=== PATIENT | male | born 1960 | race Caucasian/White ===

== ENCOUNTER 2017-06-21 13:45 | Inpatient (IN) | payer MEDICAID ==
[~2017-06-21] VITALS: Ht 180 cm; Wt 105.5 kg
[2017-06-21 14:00] VITALS: BP 119/70; PULSE 76; RESP 18
[2017-06-21] MEDS ORDERED: BISACODYL 10 MG SUPP PR PRN (16:00)
[2017-06-21] MEDS ORDERED: MAGNESIUM HYDROXIDE 30ML CUP PO PRN (16:00)
[2017-06-21] MEDS ORDERED: DC GLYBURIDE, GLIPIZIDE,GLIMEPIRIDE AND PREVIOUS INSULIN ORDERS XX SCH (16:30)
[2017-06-21] MEDS ORDERED: LACTULOSE 30ML CUP PO PRN (16:30)
[2017-06-21] MEDS ORDERED: DEXTROSE 50% 50 ML SYRINGE IV PRN ×2 (16:30)
[2017-06-21] MEDS ORDERED: POLYETHYLENE GLYCOL 17 GM PACKET PO PRN (16:30)
[2017-06-21] MEDS ORDERED: GLUCOSE GEL 15 GRAM TUBE PO PRN ×2 (16:30)
[2017-06-21] MEDS ORDERED: GLUCAGON 1 MG INJ IM PRN (16:30)
[2017-06-21] MEDS ORDERED: GLUCOSE GEL 15 GRAM TUBE BUCCAL PRN (16:30)
[2017-06-21] MEDS: Insulin NOVOLOG SS MILD Algorithm (SS with meals and bedtime) SC SCH ×2 (17:05→21:00)
[2017-06-21 18:03] LABS: ADD UMIC YES; UR ASCORBIC ACID NEGATIVE (NEGATIVE); UR BACTERIA FEW /HPF (NONE SEEN); UR BILIRUBIN (Dip) NEGATIVE (NEGATIVE); UR BLOOD (Dip) NEGATIVE (NEGATIVE); UR CLARITY CLEAR (CLEAR); UR COLOR YELLOW (YELLOW); UR GLUCOSE (Dip) NEGATIVE (NEGATIVE); UR KETONES (Dip) NEGATIVE (NEGATIVE); UR LEUKOCYTE ESTERASE (Dip) TRACE Leu/ul (NEGATIVE); UR NITRITE (Dip) NEGATIVE (NEGATIVE); UR RBC 2 /HPF (0-5); UR SPECIFIC GRAVITY (Dip) 1.009 (1.003-1.030); UR TOTAL PROTEIN (Dip) NEGATIVE (NEGATIVE); UR UROBILINOGEN (Dip) NEGATIVE (NEGATIVE)
[2017-06-21 18:10] LABS: UR MUCUS FEW /HPF (NONE SEEN)
[2017-06-21] MEDS: ACCUCHECK 2 HOURS AFTER FIRST BITE XX SCH (19:47)
[2017-06-21 20:00] VITALS: BP 123/69; RESP 18
[2017-06-21] MEDS: SENNA TAB PO SCH (21:00)
[2017-06-21] MEDS: ATORVASTATIN 40 MG TAB PO SCH (21:29)
[2017-06-21] MEDS: DOCUSATE SODIUM 100 MG CAP PO SCH (21:29)
[2017-06-21] MEDS: INSULIN GLARGINE [LANtus] 3 ML PEN SC SCH (21:32)
[2017-06-22 02:00] VITALS: BP 127/70; RESP 18
[2017-06-22] MEDS: ACCUCHECK 2 AM XX SCH (02:15)
[2017-06-22 06:49] LABS: BASOPHILS % 0.2 % (0.0-2.0); EOSINOPHILS # 0.1 10^3/ul (0.0-0.5); EOSINOPHILS % 1.1 % (0.0-7.0); HEMATOCRIT 46.1 % (42.0-52.0); LYMPHOCYTES # 2.2 10^3/ul (0.8-2.9); LYMPHOCYTES % 24.4 % (15.0-51.0); MEAN CORPUSCULAR HEMOGLOBIN 30.8 pg (29.0-33.0); MEAN CORPUSCULAR HGB CONC 34.7 g/dl (32.0-37.0); MEAN CORPUSCULAR VOLUME 88.8 fl (82.0-101.0); MEAN PLATELET VOLUME 11.5 fl (7.4-10.4); MONOCYTE # 0.8 10^3/ul (0.3-0.9); MONOCYTES % 8.9 % (0.0-11.0); NEUTROPHIL # 5.9 10^3/ul (1.6-7.5); NEUTROPHILS % 64.7 % (39.0-77.0); PLATELET COUNT 224 10^3/UL (140-415); RED BLOOD COUNT 5.19 10^6/ul (4.70-6.10); RED CELL DISTRIBUTION WIDTH 11.2 % (11.5-14.5); WHITE BLOOD COUNT 9.2 10^3/ul (4.8-10.8)
[2017-06-22] MEDS: Insulin NOVOLOG SS MILD Algorithm (SS with meals and bedtime) SC SCH ×4 (07:05→20:52)
[2017-06-22 07:07] LABS: ALBUMIN 4.1 g/dl (3.3-4.9); ALBUMIN/GLOBULIN RATIO 1.28; BILIRUBIN,INDIRECT 0.5 mg/dl (0-1.1); BILIRUBIN,TOTAL 0.5 mg/dl (0.2-1.3); CALCIUM 9.2 mg/dl (8.4-10.2); CREATININE 0.92 mg/dl (0.61-1.24); POTASSIUM 4.2 mmol/L (3.5-5.1); TOTAL PROTEIN 7.3 g/dl (6.1-8.1)
[2017-06-22 07:30] VITALS: BP 135/85; RESP 18
[2017-06-22] MEDS: DOCUSATE SODIUM 100 MG CAP PO SCH ×2 (08:48→20:51)
[2017-06-22] MEDS: ASPIRIN 81 MG TAB PO SCH (08:48)
[2017-06-22] MEDS: LISINOPRIL 10 MG TAB PO SCH (08:48)
[2017-06-22] MEDS: ENOXAPARIN 40 MG/0.4 ML SYG SC SCH (08:50)
[2017-06-22] MEDS: ACCUCHECK 2 HOURS AFTER FIRST BITE XX SCH ×3 (10:10→19:35)
--- NOTE | 2017-06-22 15:00 | CONS ---
DATE OF ADMISSION: 06/21/2017 DATE OF CONSULTATION: 06/22/2017 TYPE OF CONSULTATION: Rehabilitation post-admission physician evaluation. 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 ACTIVE COMORBIDITIES: 1. Right vertebral stenosis. 2. Hypertension. 3. Diabetes mellitus. 4. Hyperlipidemia. 5. Chronic low back pain. 6. Impairments in self-care, mobility and cognition. HISTORY OF PRESENT ILLNESS: The patient is a pleasant 56-year-old gentleman with a history of hyper tension and diabetes mellitus who was admitted with dizziness, headache and right-sided weakness. A head CT was performed and demonstrated hemorrhagic infarct. An MRI of the brain did demonstrate le ft pontine infarct extending into the left side of the jose alfredo. Patient was noted to have right verteb ral high-grade stenosis. The patient noted to have significant impairments in self-care and mobilit y as compared to baseline and has been cleared to transfer to the rehabilitation unit for comprehens billy interdisciplinary rehab care. FUNCTIONAL HISTORY: Prior to recent events, he was independent in self-care tasks and mobility. Cu rrently, he requires maximal assist for self-care and mobility tasks. I have reviewed the preadmission screen and the patient's current functional status is consistent wi th the preadmission screen. SOCIAL HISTORY: The patient lives at home with family and hopes to return there upon discharge. PAST MEDICAL HISTORY: 1. Diabetes mellitus. 2. Hypertension. 3. Chronic low back pain. CURRENT MEDICATIONS: 1. Lovenox 40 mg subcutaneous daily. 2. Aspirin 81 mg p.o. daily. 3. Antivert p.r.n. 4. Lipitor 40 mg p.o. at bedtime. 5. Zestril 10 mg p.o. daily. 6. Senokot 1 tab p.o. at bedtime. 7. MiraLax p.r.n. ALLERGIES: THE PATIENT WITH NO KNOWN DRUG ALLERGIES. PHYSICAL EXAMINATION: VITAL SIGNS: He is currently afebrile with stable vital signs. HEENT: Extraocular motions appear intact. Oropharynx clear. NECK: Supple. LUNGS: Clear anteriorly. CARDIAC: S1, S2. ABDOMEN: Soft, nontender, positive bowel sounds. NEUROLOGIC: He is awake and alert. He is oriented to person and hospital and date. He will follow simple 1-step commands. He demonstrates good strength in the left upper and lower extremity. He h as 2- strength in the right upper extremity and 3 to 3- strength in the right lower extremity. PLAN: The patient has been admitted for comprehensive interdisciplinary acute rehab and is anticipa adis to tolerate 3 hours of daily therapy in divided doses for at least 5 out of 7 days a week. The treatment plan will include: 1. Physical therapy to focus on bed mobility, transfers, and household ambulation with the goal of having the patient reach a standby assist level. 2. Occupational therapy to focus on hygiene, grooming, dressing, bathing, and toileting activities with the goal of having the patient reach a standby assist level. 3. Rehabilitation nursing for carryover of therapeutic interventions, the goal of continent of delilah l and bladder, and the goal of pain adequately managed on oral medications. 4. Speech therapy for full cognitive assessment and retraining with the goal of having the patient return to baseline cognition. REHABILITATION BARRIER: Weakness. INTERVENTION FOR BARRIER: Comprehensive interdisciplinary approach. ESTIMATED LENGTH OF STAY: 14 days. DISPOSITION GOAL: Home. I acknowledge that I performed a full physical examination on this patient within 24 hours of admiss ion to the rehabilitation unit. I believe the patient is a good candidate for comprehensive interdi sciplinary rehab care and is anticipated to make reasonable goals in a reasonable period of time as outlined above. Dictated By: TALIB FLOYD/VÍCTOR Conf#: [id number] DID#: [id number]
[2017-06-22] MEDS ORDERED: INFLUENZA VIRUS VACCINE 0.5 ML SYG IM* ONE (16:00)
--- NOTE | 2017-06-22 17:47 | HP ---
DATE OF ADMISSION: 06/21/2017 HISTORY OF PRESENT ILLNESS: The patient is a 56-year-old gentleman with past medical history of mona betes, hypertension, hyperlipidemia, chronic low back pain and chronic right shoulder pain. He pres ented with dizziness, right-sided weakness and headache to [facility]. He was found to hav e severe hypertension, facial droop, right-sided weakness. 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 In the ER, the right-sided weakness resolved, but mild vertigo still persisted. The patient was admitted with TIA, vertigo, hypertensive urgency, diabetes, cranial nerve III palsy. The patient was eventua lly transferred to acute rehab for further therapy. There has been no recent fever, chills, nausea, vomiting, chest pain, shortness of breath. MRI was done and suggested CVA. PAST MEDICAL HISTORY: As above. MEDICATIONS: Currently include: 1. Lovenox. 2. Aspirin. 3. Lisinopril. 4. Colace. 5. Senna. 6. Lipitor. 7. Lantus. 8. Lactulose. 9. Meclizine. 10. Polyethylene glycol. ALLERGIES: NO KNOWN ALLERGIES. SOCIAL HISTORY: He does not smoke, drink or use drugs. FAMILY HISTORY: History of kidney disease. REVIEW OF SYSTEMS: A 14-point review of systems attempted and negative unless stated on exam. PHYSICAL EXAMINATION: VITAL SIGNS: Temperature 98.7, blood pressure 127/70. HEENT: Normocephalic, atraumatic. Pupils are equal, round and reactive to light. Oropharynx is mo ist. NECK: Supple. HEART: Regular rate and rhythm. LUNGS: Clear. ABDOMEN: Soft, nontender, nondistended. Bowel sounds present. EXTREMITIES: No clubbing, cyanosis or edema. LABORATORY EVALUATION: Shows MRI which showed progression of the infarct to the jose alfredo. The initial MRI was likely done at the inception of the CVA and the followup MRI showed completion of the CVA. UA shows 8 WBCs. White count 9.2, hemoglobin 16, hematocrit 46. IMPRESSION: 1. Cerebrovascular accident of the jose alfredo with residual dysarthria and some dizziness. 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 The right vertebral artery stenosis may explain the patient's vertigo, but it does not explain the cause of the left pontine cerebrovascular accident. Continue PT, OT, ST, a spirin and Lipitor to be continued. Also noted intranuclear ophthalmoplegia left eye. Consider james rology evaluation. The patient was recommended an eye patch to diplopia. 2. Vertigo, acute, could be secondary to stroke. Incidental finding with stenosis of right vertebr al artery. Also complication of diplopia. Continue therapies. 3. Hypertensive urgency, resolved. Possibly related to elevation of blood pressure from cerebrovas cular accident. Currently, blood pressure is adequately controlled on regular medications. 4. Diabetes. Continue regular medications on sliding scale. 5. Cranial nerve III palsy, acute. Continue eye patch. 6. Vertebral artery stenosis, occlusion, monitor. 7. Chronic low back pain, stable with Tylenol for pain, p.r.n. pain control. 8. Hyperlipidemia. Continue regular medications, monitor. Dictated By: MARKY BINGHAM/VÍCTOR Conf#: [id number] DID#: [id number]
[2017-06-22 19:58] VITALS: BP 121/75; RESP 18
[2017-06-22] MEDS: SENNA TAB PO SCH (20:51)
[2017-06-22] MEDS: ATORVASTATIN 40 MG TAB PO SCH (20:51)
[2017-06-22] MEDS: INSULIN GLARGINE [LANtus] 3 ML PEN SC SCH (20:56)
[2017-06-23 02:00] VITALS: BP 135/77; PULSE 80; RESP 16
[2017-06-23] MEDS: ACCUCHECK 2 AM XX SCH (02:00)
[2017-06-23] MEDS: Insulin NOVOLOG SS MILD Algorithm (SS with meals and bedtime) SC SCH ×5 (07:05→22:09)
[2017-06-23 07:30] VITALS: BP 112/68; RESP 20
[2017-06-23] MEDS: DOCUSATE SODIUM 100 MG CAP PO SCH ×3 (08:39→22:06)
[2017-06-23] MEDS: ENOXAPARIN 40 MG/0.4 ML SYG SC SCH (08:39)
[2017-06-23] MEDS: ASPIRIN 81 MG TAB PO SCH (08:39)
[2017-06-23] MEDS: LISINOPRIL 10 MG TAB PO SCH (08:39)
--- NOTE | 2017-06-23 08:51 | CONS ---
Date/Time of Note Date/Time of Note DATE: 06/23/17 TIME: 08:50 Consult Date/Type/Reason Admit Date/Time Jun 21, 2017 at 13:45 Initial Consult Date Subjective Patient comfortable Objective pulm-cta mod assist Vital Signs Date Time Temp Pulse Resp B/P Pulse Ox O2 Delivery O2 Flow Rate FiO2 06/23/17 07:30 98.6 71 20 112/68 96 06/23/17 02:00 Room Air Intake and Output 06/22/17 06/22/17 06/23/17 15:00 23:00 07:00 Intake Total 300 ml Output Total 550 ml Balance -250 ml Results/Medications Result Diagram: 06/22/1761006/22/17 0611 Results 24 hrs Laboratory Tests Test 06/22/17 10:07 06/22/17 12:26 06/22/17 14:14 06/22/17 17:35 Bedside Glucose 119 134 155 132 Test 06/22/17 19:55 06/22/17 20:51 06/23/17 07:54 Bedside Glucose 142 152 115 Medications Current Medications Docusate Sodium (Colace) 100 mg BID PO Last administered on 06/23/17 08:39; Admin Dose 100 MG; Start 06/21/17 at 21:00 Senna (Senokot) 1 tab HS PO Last administered on 06/22/17 20:51; Admin Dose 1 TAB; Start 06/21/17 at 21:00 Acetaminophen (Tylenol Tab) 650 mg Q4H PRN PO PAIN; Start 06/21/17 at 16:00 Bisacodyl (Dulcolax Supp) 10 mg DAILY PRN [place] CONSTIPATION; Start 06/21/17 at 16:00 Magnesium Hydroxide (Milk Of Mag) 30 ml BID PRN PO CONSTIPATION; Start at 16:00 Lactulose (Enulose) 20 gm DAILY PRN PO CONSTIPATION; Start 06/21/17 at 16:30 Enoxaparin Sodium (Lovenox) 40 mg DAILY SC Last administered on 06/23/17 08: 39; Admin Dose 40 MG; Start 06/22/17 at 09:00 Aspirin (Aspirin) 81 mg DAILY PO Last administered on 06/23/17 08:39; Admin Dose 81 MG; Start 06/22/17 at 09:00 Meclizine HCl (Antivert) 25 mg TID PRN PO VERTIGO; Start 06/21/17 at 16:30 Atorvastatin Calcium (Lipitor) 40 mg DAILY@21 PO Last administered on 20:51; Admin Dose 40 MG; Start 06/21/17 at 21:00 Lisinopril (Zestril) 10 mg DAILY PO Last administered on 06/23/17 08:39; Admin Dose 10 MG; Start 06/22/17 at 09:00 Polyethylene Glycol (Miralax) 17 gm DAILY PRN PO CONSTIPATION; Start 06/21/17 at 16:30 Insulin Glargine (Lantus) 12 unit HS SC Last administered on 06/22/17 20:56; Admin Dose 12 UNIT; Start 06/21/17 at 21:00 Miscellaneous Information 1 ea NOTE XX ; Start 06/21/17 at 16:30 Diagnostic Test (Pha) (Accu-Chek) 1 ea 02 XX ; Start 06/21/17 at 16:30 Miscellaneous Information 1 ea NOTE XX ; Start 06/21/17 at 16:30 Glucose (Glutose) 15 gm Q15M PRN PO DECREASED GLUCOSE; Start 06/21/17 at 16:30 Glucose (Glutose) 22.5 gm Q15M PRN PO DECREASED GLUCOSE; Start 06/21/17 at 16: 30 Dextrose (D50w Syringe) 25 ml Q15M PRN IV DECREASED GLUCOSE; Start 06/21/17 at 16:30 Dextrose (D50w Syringe) 50 ml Q15M PRN IV DECREASED GLUCOSE; Start 06/21/17 at 16:30 Glucagon (Glucagen) 1 mg Q15M PRN IM DECREASED GLUCOSE; Start 06/21/17 at 16: 30 Glucose (Glutose) 15 gm Q15M PRN BUCCAL DECREASED GLUCOSE; Start 06/21/17 at 16:30 Assessment/Plan Additional Assessment/Plan Rehab- 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 Continue rehab Right vertebral stenosis. Hypertension. Diabetes mellitus. Hyperlipidemia. Chronic low back pain. TALIB SCOTT MD Jun 23, 2017 08:51
[2017-06-23] MEDS: ACCUCHECK 2 HOURS AFTER FIRST BITE XX SCH ×3 (09:59→19:35)
--- NOTE | 2017-06-23 11:30 | CONS ---
Date/Time of Note Date/Time of Note DATE: 06/23/17 TIME: 11:29 Consult Date/Type/Reason Admit Date/Time Jun 21, 2017 at 13:45 Initial Consult Date Subjective all noted and reviewed no new c/o. PHYSICAL EXAMINATION: VITAL SIGNS: Temperature 98.7, blood pressure 127/70. HEENT: Normocephalic, atraumatic. Pupils are equal, round and reactive to light. Oropharynx is moist. NECK: Supple. HEART: Regular rate and rhythm. LUNGS: Clear. ABDOMEN: Soft, nontender, nondistended. Bowel sounds present. EXTREMITIES: No clubbing, cyanosis or edema. Objective Vital Signs Date Time Temp Pulse Resp B/P Pulse Ox O2 Delivery O2 Flow Rate FiO2 06/23/17 07:30 98.6 71 20 112/68 96 06/23/17 02:00 Room Air Intake and Output 06/22/17 06/22/17 06/23/17 15:00 23:00 07:00 Intake Total 300 ml Output Total 550 ml Balance -250 ml Results/Medications Result Diagram: 06/22/1761006/22/17 0611 Results 24 hrs Laboratory Tests Test 06/22/17 12:26 06/22/17 14:14 06/22/17 17:35 06/22/17 19:55 Bedside Glucose 134 155 132 142 Test 06/22/17 20:51 06/23/17 07:54 06/23/17 09:56 Bedside Glucose 152 115 252 H Medications Current Medications Docusate Sodium (Colace) 100 mg BID PO Last administered on 06/23/17 08:39; Admin Dose 100 MG; Start 06/21/17 at 21:00 Senna (Senokot) 1 tab HS PO Last administered on 06/22/17 20:51; Admin Dose 1 TAB; Start 06/21/17 at 21:00 Acetaminophen (Tylenol Tab) 650 mg Q4H PRN PO PAIN; Start 06/21/17 at 16:00 Bisacodyl (Dulcolax Supp) 10 mg DAILY PRN [place] CONSTIPATION; Start 06/21/17 at 16:00 Magnesium Hydroxide (Milk Of Mag) 30 ml BID PRN PO CONSTIPATION; Start at 16:00 Lactulose (Enulose) 20 gm DAILY PRN PO CONSTIPATION; Start 06/21/17 at 16:30 Enoxaparin Sodium (Lovenox) 40 mg DAILY SC Last administered on 06/23/17 08: 39; Admin Dose 40 MG; Start 06/22/17 at 09:00 Aspirin (Aspirin) 81 mg DAILY PO Last administered on 06/23/17 08:39; Admin Dose 81 MG; Start 06/22/17 at 09:00 Meclizine HCl (Antivert) 25 mg TID PRN PO VERTIGO; Start 06/21/17 at 16:30 Atorvastatin Calcium (Lipitor) 40 mg DAILY@21 PO Last administered on 20:51; Admin Dose 40 MG; Start 06/21/17 at 21:00 Lisinopril (Zestril) 10 mg DAILY PO Last administered on 06/23/17 08:39; Admin Dose 10 MG; Start 06/22/17 at 09:00 Polyethylene Glycol (Miralax) 17 gm DAILY PRN PO CONSTIPATION; Start 06/21/17 at 16:30 Insulin Glargine (Lantus) 12 unit HS SC Last administered on 06/22/17 20:56; Admin Dose 12 UNIT; Start 06/21/17 at 21:00 Miscellaneous Information 1 ea NOTE XX ; Start 06/21/17 at 16:30 Diagnostic Test (Pha) (Accu-Chek) 1 ea 02 XX ; Start 06/21/17 at 16:30 Miscellaneous Information 1 ea NOTE XX ; Start 06/21/17 at 16:30 Glucose (Glutose) 15 gm Q15M PRN PO DECREASED GLUCOSE; Start 06/21/17 at 16:30 Glucose (Glutose) 22.5 gm Q15M PRN PO DECREASED GLUCOSE; Start 06/21/17 at 16: 30 Dextrose (D50w Syringe) 25 ml Q15M PRN IV DECREASED GLUCOSE; Start 06/21/17 at 16:30 Dextrose (D50w Syringe) 50 ml Q15M PRN IV DECREASED GLUCOSE; Start 06/21/17 at 16:30 Glucagon (Glucagen) 1 mg Q15M PRN IM DECREASED GLUCOSE; Start 06/21/17 at 16: 30 Glucose (Glutose) 15 gm Q15M PRN BUCCAL DECREASED GLUCOSE; Start 06/21/17 at 16:30 Assessment/Plan Chief Complaint/Hosp Course 1. Cerebrovascular accident of the jose alfredo with residual dysarthria and some dizziness. 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 The right vertebral artery stenosis may explain the patient's vertigo, but it does not explain the cause of the left pontine cerebrovascular accident. Continue PT , OT, ST, aspirin and Lipitor to be continued. Also noted intranuclear ophthalmoplegia left eye. Consider neurology evaluation. The patient was recommended an eye patch to correct diplopia. 2. Vertigo, acute, could be secondary to stroke. Incidental finding with stenosis of right vertebral artery. Also complication of diplopia. Continue therapies. 3. Hypertensive urgency, resolved. Possibly related to elevation of blood pressure from cerebrovascular accident. Currently, blood pressure is adequately controlled on regular medications. 4. Diabetes. Continue regular medications on sliding scale. 5. Cranial nerve III palsy, acute. Continue eye patch. 6. Vertebral artery stenosis, occlusion, monitor. 7. Chronic low back pain, stable with Tylenol for pain, p.r.n. pain control. 8. Hyperlipidemia. Continue regular medications, monitor. Problems: TELMA SANDERS MD Jun 23, 2017 11:30
[2017-06-23 19:53] VITALS: BP 109/62; PULSE 83; RESP 18
[2017-06-23] MEDS: INSULIN GLARGINE [LANtus] 3 ML PEN SC SCH ×2 (21:00→22:08)
[2017-06-23] MEDS: ATORVASTATIN 40 MG TAB PO SCH ×2 (21:00→22:06)
[2017-06-23] MEDS: SENNA TAB PO SCH ×2 (21:00→22:06)
[2017-06-24] MEDS: ACCUCHECK 2 AM XX SCH (02:00)
[2017-06-24 02:22] VITALS: BP 107/67; PULSE 90; RESP 17
[2017-06-24] MEDS: ACETAMINOPHEN 325 MG TAB PO PRN ×2 (06:42→23:02)
[2017-06-24] MEDS: Insulin NOVOLOG SS MILD Algorithm (SS with meals and bedtime) SC SCH ×4 (07:05→20:41)
[2017-06-24 08:08] VITALS: BP 131/72; PULSE 66; RESP 18
[2017-06-24] MEDS: DOCUSATE SODIUM 100 MG CAP PO SCH ×2 (08:17→20:37)
[2017-06-24] MEDS: ASPIRIN 81 MG TAB PO SCH (08:17)
[2017-06-24] MEDS: LISINOPRIL 10 MG TAB PO SCH (08:17)
[2017-06-24] MEDS: ENOXAPARIN 40 MG/0.4 ML SYG SC SCH (08:24)
--- NOTE | 2017-06-24 09:12 | CONS ---
Date/Time of Note Date/Time of Note DATE: 06/24/17 TIME: 09:12 Consult Date/Type/Reason Admit Date/Time Jun 21, 2017 at 13:45 Type of Consultation: nephro/im Subjective all noted and reviewed no new c/o. PHYSICAL EXAMINATION: VITAL SIGNS: Temperature 98.7, blood pressure 127/70. HEENT: Normocephalic, atraumatic. Pupils are equal, round and reactive to light. Oropharynx is moist. NECK: Supple. HEART: Regular rate and rhythm. LUNGS: Clear. ABDOMEN: Soft, nontender, nondistended. Bowel sounds present. EXTREMITIES: No clubbing, cyanosis or edema. Objective Vital Signs Date Time Temp Pulse Resp B/P Pulse Ox O2 Delivery O2 Flow Rate FiO2 06/24/17 08:08 98.4 66 18 131/72 95 06/24/17 02:22 Room Air Intake and Output 06/23/17 06/23/17 06/24/17 14:59 22:59 06:59 Intake Total 600 ml Output Total 900 ml Balance -300 ml Results/Medications Result Diagram: 06/22/1761006/22/17 0611 Results 24 hrs Laboratory Tests Test 06/23/17 09:56 06/23/17 12:21 06/23/17 14:07 06/23/17 17:27 Bedside Glucose 252 H 144 142 118 Test 06/23/17 19:57 06/23/17 22:05 06/24/17 02:17 06/24/17 07:53 Bedside Glucose 227 H 187 139 121 Medications Current Medications Docusate Sodium (Colace) 100 mg BID PO Last administered on 06/24/17 08:17; Admin Dose 100 MG; Start 06/21/17 at 21:00 Senna (Senokot) 1 tab HS PO Last administered on 06/23/17 22:06; Admin Dose 1 TAB; Start 06/21/17 at 21:00 Acetaminophen (Tylenol Tab) 650 mg Q4H PRN PO PAIN Last administered on 06:42; Admin Dose 650 MG; Start 06/21/17 at 16:00 Bisacodyl (Dulcolax Supp) 10 mg DAILY PRN [place] CONSTIPATION; Start 06/21/17 at 16:00 Magnesium Hydroxide (Milk Of Mag) 30 ml BID PRN PO CONSTIPATION; Start at 16:00 Lactulose (Enulose) 20 gm DAILY PRN PO CONSTIPATION; Start 06/21/17 at 16:30 Enoxaparin Sodium (Lovenox) 40 mg DAILY SC Last administered on 06/24/17 08: 24; Admin Dose 40 MG; Start 06/22/17 at 09:00 Aspirin (Aspirin) 81 mg DAILY PO Last administered on 06/24/17 08:17; Admin Dose 81 MG; Start 06/22/17 at 09:00 Meclizine HCl (Antivert) 25 mg TID PRN PO VERTIGO; Start 06/21/17 at 16:30 Atorvastatin Calcium (Lipitor) 40 mg DAILY@21 PO Last administered on 22:06; Admin Dose 40 MG; Start 06/21/17 at 21:00 Lisinopril (Zestril) 10 mg DAILY PO Last administered on 06/24/17 08:17; Admin Dose 10 MG; Start 06/22/17 at 09:00 Polyethylene Glycol (Miralax) 17 gm DAILY PRN PO CONSTIPATION; Start 06/21/17 at 16:30 Insulin Glargine (Lantus) 12 unit HS SC Last administered on 06/23/17 22:08; Admin Dose 12 UNIT; Start 06/21/17 at 21:00 Miscellaneous Information 1 ea NOTE XX ; Start 06/21/17 at 16:30 Diagnostic Test (Pha) (Accu-Chek) 1 ea 02 XX ; Start 06/21/17 at 16:30 Miscellaneous Information 1 ea NOTE XX ; Start 06/21/17 at 16:30 Glucose (Glutose) 15 gm Q15M PRN PO DECREASED GLUCOSE; Start 06/21/17 at 16:30 Glucose (Glutose) 22.5 gm Q15M PRN PO DECREASED GLUCOSE; Start 06/21/17 at 16: 30 Dextrose (D50w Syringe) 25 ml Q15M PRN IV DECREASED GLUCOSE; Start 06/21/17 at 16:30 Dextrose (D50w Syringe) 50 ml Q15M PRN IV DECREASED GLUCOSE; Start 06/21/17 at 16:30 Glucagon (Glucagen) 1 mg Q15M PRN IM DECREASED GLUCOSE; Start 06/21/17 at 16: 30 Glucose (Glutose) 15 gm Q15M PRN BUCCAL DECREASED GLUCOSE; Start 06/21/17 at 16:30 Assessment/Plan Chief Complaint/Hosp Course 1. Cerebrovascular accident of the jose alfredo with residual dysarthria and some dizziness. 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 The right vertebral artery stenosis may explain the patient's vertigo, but it does not explain the cause of the left pontine cerebrovascular accident. Continue PT , OT, ST, aspirin and Lipitor to be continued. Also noted intranuclear ophthalmoplegia left eye. Consider neurology evaluation. The patient was recommended an eye patch to correct diplopia. 2. Vertigo, acute, could be secondary to stroke. Incidental finding with stenosis of right vertebral artery. Also complication of diplopia. Continue therapies. 3. Hypertensive urgency, resolved. Possibly related to elevation of blood pressure from cerebrovascular accident. Currently, blood pressure is adequately controlled on regular medications. 4. Diabetes. Continue regular medications on sliding scale. 5. Cranial nerve III palsy, acute. Continue eye patch. 6. Vertebral artery stenosis, occlusion, monitor. 7. Chronic low back pain, stable with Tylenol for pain, p.r.n. pain control. 8. Hyperlipidemia. Continue regular medications, monitor. Problems: TELMA SANDERS MD Jun 24, 2017 09:12
[2017-06-24] MEDS: ACCUCHECK 2 HOURS AFTER FIRST BITE XX SCH ×3 (10:00→19:56)
[2017-06-24 14:00] VITALS: BP 129/67; PULSE 85; RESP 18
[2017-06-24 20:05] VITALS: BP 109/68; PULSE 105; RESP 18
[2017-06-24] MEDS: ATORVASTATIN 40 MG TAB PO SCH (20:38)
[2017-06-24] MEDS: SENNA TAB PO SCH (20:38)
[2017-06-24] MEDS: INSULIN GLARGINE [LANtus] 3 ML PEN SC SCH (20:42)
[2017-06-25 02:00] VITALS: BP 122/71; PULSE 95; RESP 18
[2017-06-25] MEDS: ACCUCHECK 2 AM XX SCH (02:23)
[2017-06-25] MEDS: ACETAMINOPHEN 325 MG TAB PO PRN ×2 (05:28→19:23)
[2017-06-25 07:00] VITALS: BP 112/56; RESP 18
[2017-06-25] MEDS: LISINOPRIL 10 MG TAB PO SCH (08:19)
[2017-06-25] MEDS: DOCUSATE SODIUM 100 MG CAP PO SCH ×2 (08:19→20:36)
[2017-06-25] MEDS: ASPIRIN 81 MG TAB PO SCH (08:19)
[2017-06-25] MEDS: Insulin NOVOLOG SS MILD Algorithm (SS with meals and bedtime) SC SCH ×4 (08:19→21:00)
[2017-06-25] MEDS: ENOXAPARIN 40 MG/0.4 ML SYG SC SCH (08:20)
--- NOTE | 2017-06-25 09:50 | CONS ---
Date/Time of Note Date/Time of Note DATE: 06/25/17 TIME: 09:50 Consult Date/Type/Reason Admit Date/Time Jun 21, 2017 at 13:45 Type of Consultation: nephro/im Subjective all noted and reviewed no new c/o. BS slightly high PHYSICAL EXAMINATION: VITAL SIGNS: Temperature 98.7, blood pressure 127/70. HEENT: Normocephalic, atraumatic. Pupils are equal, round and reactive to light. Oropharynx is moist. NECK: Supple. HEART: Regular rate and rhythm. LUNGS: Clear. ABDOMEN: Soft, nontender, nondistended. Bowel sounds present. EXTREMITIES: No clubbing, cyanosis or edema. Objective Vital Signs Date Time Temp Pulse Resp B/P Pulse Ox O2 Delivery O2 Flow Rate FiO2 06/25/17 07:00 98.4 87 18 112/56 95 06/25/17 02:00 Room Air Intake and Output 06/24/17 06/24/17 06/25/17 15:00 23:00 07:00 Intake Total 500 ml 240 ml 300 ml Output Total 300 ml 700 ml Balance 200 ml 240 ml -400 ml Results/Medications Result Diagram: 06/22/17 0611 06/22/17 0611 Results 24 hrs Laboratory Tests Test 06/24/17 10:05 06/24/17 12:26 06/24/17 14:20 06/24/17 15:23 Bedside Glucose 215 148 220 179 Test 06/24/17 17:23 06/24/17 19:22 06/24/17 20:35 06/25/17 02:03 Bedside Glucose 156 193 241 H 161 Test 06/25/17 08:05 Bedside Glucose 184 Medications Current Medications Docusate Sodium (Colace) 100 mg BID PO Last administered on 06/25/17 08:19; Admin Dose 100 MG; Start 06/21/17 at 21:00 Senna (Senokot) 1 tab HS PO Last administered on 06/24/17 20:38; Admin Dose 1 TAB; Start 06/21/17 at 21:00 Acetaminophen (Tylenol Tab) 650 mg Q4H PRN PO PAIN Last administered on 05:28; Admin Dose 650 MG; Start 06/21/17 at 16:00 Bisacodyl (Dulcolax Supp) 10 mg DAILY PRN [place] CONSTIPATION; Start 06/21/17 at 16:00 Magnesium Hydroxide (Milk Of Mag) 30 ml BID PRN PO CONSTIPATION; Start at 16:00 Lactulose (Enulose) 20 gm DAILY PRN PO CONSTIPATION; Start 06/21/17 at 16:30 Enoxaparin Sodium (Lovenox) 40 mg DAILY SC Last administered on 06/25/17 08: 20; Admin Dose 40 MG; Start 06/22/17 at 09:00 Aspirin (Aspirin) 81 mg DAILY PO Last administered on 06/25/17 08:19; Admin Dose 81 MG; Start 06/22/17 at 09:00 Meclizine HCl (Antivert) 25 mg TID PRN PO VERTIGO; Start 06/21/17 at 16:30 Atorvastatin Calcium (Lipitor) 40 mg DAILY@21 PO Last administered on 20:38; Admin Dose 40 MG; Start 06/21/17 at 21:00 Lisinopril (Zestril) 10 mg DAILY PO Last administered on 06/25/17 08:19; Admin Dose 10 MG; Start 06/22/17 at 09:00 Polyethylene Glycol (Miralax) 17 gm DAILY PRN PO CONSTIPATION; Start 06/21/17 at 16:30 Insulin Glargine (Lantus) 12 unit HS SC Last administered on 06/24/17 20:42; Admin Dose 12 UNIT; Start 06/21/17 at 21:00 Miscellaneous Information 1 ea NOTE XX ; Start 06/21/17 at 16:30 Diagnostic Test (Pha) (Accu-Chek) 1 ea 02 XX Last administered on 06/25/17 02 :23; Admin Dose 1 EA; Start 06/21/17 at 16:30 Miscellaneous Information 1 ea NOTE XX ; Start 06/21/17 at 16:30 Glucose (Glutose) 15 gm Q15M PRN PO DECREASED GLUCOSE; Start 06/21/17 at 16:30 Glucose (Glutose) 22.5 gm Q15M PRN PO DECREASED GLUCOSE; Start 06/21/17 at 16: 30 Dextrose (D50w Syringe) 25 ml Q15M PRN IV DECREASED GLUCOSE; Start 06/21/17 at 16:30 Dextrose (D50w Syringe) 50 ml Q15M PRN IV DECREASED GLUCOSE; Start 06/21/17 at 16:30 Glucagon (Glucagen) 1 mg Q15M PRN IM DECREASED GLUCOSE; Start 06/21/17 at 16: 30 Glucose (Glutose) 15 gm Q15M PRN BUCCAL DECREASED GLUCOSE; Start 06/21/17 at 16:30 Assessment/Plan Chief Complaint/Hosp Course 1. Cerebrovascular accident of the jose alfredo with residual dysarthria and some dizziness. 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 The right vertebral artery stenosis may explain the patient's vertigo, but it does not explain the cause of the left pontine cerebrovascular accident. Continue PT , OT, ST, aspirin and Lipitor to be continued. Also noted intranuclear ophthalmoplegia left eye. Consider neurology evaluation. The patient was recommended an eye patch to correct diplopia. 2. Vertigo, acute, could be secondary to stroke. Incidental finding with stenosis of right vertebral artery. Also complication of diplopia. Continue therapies. 3. Hypertensive urgency, resolved. Possibly related to elevation of blood pressure from cerebrovascular accident. Currently, blood pressure is adequately controlled on regular medications. 4. Diabetes. Continue regular medications on sliding scale. 5. Cranial nerve III palsy, acute. Continue eye patch. 6. Vertebral artery stenosis, occlusion, monitor. 7. Chronic low back pain, stable with Tylenol for pain, p.r.n. pain control. 8. Hyperlipidemia. Continue regular medications, monitor. Problems: TELMA SANDERS MD Jun 25, 2017 09:50
[2017-06-25 19:54] VITALS: BP 136/74; RESP 18
[2017-06-25] MEDS: SENNA TAB PO SCH (20:36)
[2017-06-25] MEDS: ATORVASTATIN 40 MG TAB PO SCH (20:36)
[2017-06-25] MEDS: INSULIN GLARGINE [LANtus] 3 ML PEN SC SCH (20:38)
[2017-06-26] MEDS: ACETAMINOPHEN 325 MG TAB PO PRN (01:35)
[2017-06-26 02:00] VITALS: BP 114/66; RESP 18
[2017-06-26] MEDS: ACCUCHECK 2 AM XX SCH (02:00)
[2017-06-26] MEDS: Insulin NOVOLOG SS MILD Algorithm (SS with meals and bedtime) SC SCH ×4 (07:05→21:00)
[2017-06-26 08:15] VITALS: BP 109/77; PULSE 70; RESP 18
[2017-06-26] MEDS: DOCUSATE SODIUM 100 MG CAP PO SCH ×2 (08:54→20:29)
[2017-06-26] MEDS: MECLIZINE 25 MG TAB PO PRN (08:54)
[2017-06-26] MEDS: LISINOPRIL 10 MG TAB PO SCH (08:58)
[2017-06-26] MEDS: ASPIRIN 81 MG TAB PO SCH (09:06)
[2017-06-26] MEDS: ENOXAPARIN 40 MG/0.4 ML SYG SC SCH (09:07)
[2017-06-26] MEDS: traMADol 50 MG TAB PO PRN (09:18)
--- NOTE | 2017-06-26 10:47 | PN ---
DATE: 06/26/2017 SUBJECTIVE: The patient is stable. No events overnight. No fevers, chills, nausea, vomiting. OBJECTIVE: VITAL SIGNS: Blood pressure is 114/66, respiration 18, pulse 78, temperature 98.4. HEENT: Head is normocephalic. NECK: Supple. HEART: Regular rate. LUNGS: Show diminished breath sounds at the base. ABDOMEN: Soft, nontender to palpation without rebound or guarding. EXTREMITIES: Negative for clubbing, cyanosis, edema. DERMATOLOGIC: No rashes. MUSCULOSKELETAL: No joint effusions. NEUROLOGIC: No change in exam. MEDICATIONS: The patient's medications have been reviewed. LABORATORY DATA: Have been reviewed, no new labs. ASSESSMENT AND PLAN: 1. Acute cerebrovascular accident of the jose alfredo with residual dysarthria. Plan is to continue curren t medical management. Continue aspirin, Lipitor. Continue PT, OT. 2. Diplopia, possibly secondary to recent cerebrovascular accident. Continue to monitor. 3. Vertigo, possibly due to cerebrovascular accident. Continue current medical management. Consid er neurology evaluation. 4. Hypertension. Continue current blood pressure regimen. 5. Diabetes. Continue current insulin regimen. 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 7. History of low back pain. Continue Tylenol p.r.n. 8. Dyslipidemia. Continue statin therapy. 9. Gastrointestinal and deep venous thrombosis prophylaxis. Dictated By: BENIGNO JANSEN/VÍCTOR Conf#: [id number] DID#: [id number]
--- NOTE | 2017-06-26 12:36 | CONS ---
Date/Time of Note Date/Time of Note DATE: 06/26/17 TIME: 12:35 Consult Date/Type/Reason Admit Date/Time Jun 21, 2017 at 13:45 Type of Consultation: nephro/im Objective Vital Signs Date Time Temp Pulse Resp B/P Pulse Ox O2 Delivery O2 Flow Rate FiO2 06/26/17 08:15 98.7 70 18 109/77 98 Room Air Intake and Output 06/25/17 06/25/17 06/26/17 15:00 23:00 07:00 Intake Total 1200 ml 1100 ml Output Total 600 ml 600 ml Balance 600 ml 500 ml INTERDISCIPLINARY TEAM CONFERENCE BOWEL- Cont BLADDER-Cont SKIN- intact OT- DRESSING-min/mod BATHING-min/mod TOILETING-mod PT- BED MOBILITY-max TRANSFERS-max AMBULATION-max 20 feet W.C. MOBILITY-max 30 feet SPEECH- COGNITION-min DYPHAGIA A/P- Interdisciplinary team conference held today. Please see interdisciplinary sheet. Working toward d.c. on 07/10 with post discharge follow up of physical therapy, occupational therapy. Results/Medications Result Diagram: 06/22/17 0611 06/22/17 0611 Results 24 hrs Laboratory Tests Test 06/25/17 17:15 06/25/17 20:35 06/26/17 07:50 06/26/17 08:35 Bedside Glucose 158 160 114 Hemoglobin A1c 6.8 H Test 06/26/17 11:54 Bedside Glucose 181 Medications Current Medications Docusate Sodium (Colace) 100 mg BID PO Last administered on 06/26/17 08:54; Admin Dose 100 MG; Start 06/21/17 at 21:00 Senna (Senokot) 1 tab HS PO Last administered on 06/25/17 20:36; Admin Dose 1 TAB; Start 06/21/17 at 21:00 Acetaminophen (Tylenol Tab) 650 mg Q4H PRN PO PAIN Last administered on 01:35; Admin Dose 650 MG; Start 06/21/17 at 16:00 Bisacodyl (Dulcolax Supp) 10 mg DAILY PRN [place] CONSTIPATION; Start 06/21/17 at 16:00 Magnesium Hydroxide (Milk Of Mag) 30 ml BID PRN PO CONSTIPATION; Start at 16:00 Lactulose (Enulose) 20 gm DAILY PRN PO CONSTIPATION; Start 06/21/17 at 16:30 Enoxaparin Sodium (Lovenox) 40 mg DAILY SC Last administered on 06/26/17 09: 07; Admin Dose 40 MG; Start 06/22/17 at 09:00 Aspirin (Aspirin) 81 mg DAILY PO Last administered on 06/26/17 09:06; Admin Dose 81 MG; Start 06/22/17 at 09:00 Meclizine HCl (Antivert) 25 mg TID PRN PO VERTIGO Last administered on 08:54; Admin Dose 25 MG; Start 06/21/17 at 16:30 Atorvastatin Calcium (Lipitor) 40 mg DAILY@21 PO Last administered on 20:36; Admin Dose 40 MG; Start 06/21/17 at 21:00 Lisinopril (Zestril) 10 mg DAILY PO Last administered on 06/26/17 08:58; Admin Dose 10 MG; Start 06/22/17 at 09:00 Polyethylene Glycol (Miralax) 17 gm DAILY PRN PO CONSTIPATION; Start 06/21/17 at 16:30 Insulin Glargine (Lantus) 12 unit HS SC Last administered on 06/25/17 20:38; Admin Dose 12 UNIT; Start 06/21/17 at 21:00 Miscellaneous Information 1 ea NOTE XX ; Start 06/21/17 at 16:30 Diagnostic Test (Pha) (Accu-Chek) 1 ea 02 XX Last administered on 06/25/17 02 :23; Admin Dose 1 EA; Start 06/21/17 at 16:30 Miscellaneous Information 1 ea NOTE XX ; Start 06/21/17 at 16:30 Glucose (Glutose) 15 gm Q15M PRN PO DECREASED GLUCOSE; Start 06/21/17 at 16:30 Glucose (Glutose) 22.5 gm Q15M PRN PO DECREASED GLUCOSE; Start 06/21/17 at 16: 30 Dextrose (D50w Syringe) 25 ml Q15M PRN IV DECREASED GLUCOSE; Start 06/21/17 at 16:30 Dextrose (D50w Syringe) 50 ml Q15M PRN IV DECREASED GLUCOSE; Start 06/21/17 at 16:30 Glucagon (Glucagen) 1 mg Q15M PRN IM DECREASED GLUCOSE; Start 06/21/17 at 16: 30 Glucose (Glutose) 15 gm Q15M PRN BUCCAL DECREASED GLUCOSE; Start 06/21/17 at 16:30 Tramadol HCl (Ultram) 50 mg Q6H PRN PO PAIN AND/OR INFLAMMATION Last administered on 06/26/17t 09:18; Admin Dose 50 MG; Start 06/26/17 at 09:00 TALIB SCOTT MD Jun 26, 2017 12:36
[2017-06-26 20:00] VITALS: BP 116/72; RESP 18
[2017-06-26] MEDS: ATORVASTATIN 40 MG TAB PO SCH (20:29)
[2017-06-26] MEDS: SENNA TAB PO SCH (20:29)
[2017-06-26] MEDS: INSULIN GLARGINE [LANtus] 3 ML PEN SC SCH (20:31)
[2017-06-27 02:00] VITALS: BP 126/77; RESP 18
[2017-06-27] MEDS: ACCUCHECK 2 AM XX SCH (02:00)
[2017-06-27 07:00] VITALS: BP 90/51; RESP 18
[2017-06-27] MEDS: Insulin NOVOLOG SS MILD Algorithm (SS with meals and bedtime) SC SCH ×4 (07:05→21:00)
[2017-06-27 07:41] LABS: BASOPHIL # 0.1 10^3/ul (0.0-0.1); BASOPHILS % 0.6 % (0.0-2.0); EOSINOPHILS # 0.1 10^3/ul (0.0-0.5); EOSINOPHILS % 1.5 % (0.0-7.0); LYMPHOCYTES % 22.7 % (15.0-51.0); MEAN CORPUSCULAR HEMOGLOBIN 30.4 pg (29.0-33.0); MEAN CORPUSCULAR HGB CONC 33.3 g/dl (32.0-37.0); MEAN CORPUSCULAR VOLUME 91.3 fl (82.0-101.0); MEAN PLATELET VOLUME 11.5 fl (7.4-10.4); MONOCYTE # 0.6 10^3/ul (0.3-0.9); MONOCYTES % 7.2 % (0.0-11.0); NEUTROPHIL # 5.9 10^3/ul (1.6-7.5); NEUTROPHILS % 67.4 % (39.0-77.0); PLATELET COUNT 240 10^3/UL (140-415); RED BLOOD COUNT 4.93 10^6/ul (4.70-6.10); WHITE BLOOD COUNT 8.8 10^3/ul (4.8-10.8)
[2017-06-27 08:12] LABS: CALCIUM 9.5 mg/dl (8.4-10.2); CREATININE 0.99 mg/dl (0.61-1.24); MAGNESIUM 1.8 mg/dl (1.7-2.5); PHOSPHORUS 4.8 mg/dl (2.5-4.9); POTASSIUM 4.1 mmol/L (3.5-5.1)
[2017-06-27] MEDS: ASPIRIN 81 MG TAB PO SCH (09:24)
[2017-06-27] MEDS: DOCUSATE SODIUM 100 MG CAP PO SCH ×2 (09:24→21:34)
[2017-06-27] MEDS: ENOXAPARIN 40 MG/0.4 ML SYG SC SCH (09:26)
--- NOTE | 2017-06-27 10:53 | PN ---
DATE: 06/27/2017 SUBJECTIVE: The patient is stable, no events overnight. OBJECTIVE: VITAL SIGNS: Blood pressure 90/51, respiration 18, pulse 80, temperature 97.3. HEENT: Head is normocephalic. NECK: Supple. HEART: regular rate. LUNGS: Diminished breath sounds at the base. ABDOMEN: Soft, nontender to palpation without rebound or guarding. EXTREMITIES: Negative for clubbing, cyanosis, no edema. DERMATOLOGIC: No rashes. MUSCULOSKELETAL: No joint effusions. NEUROLOGIC: No change in exam. MEDICATIONS: The patient's medications have been reviewed. LABORATORY DATA: Shows white count 8.8, hemoglobin 15.0, hematocrit 45.0, platelet count 240. [place] um 143, potassium 4.1, BUN 22, creatinine 0.99. ASSESSMENT AND PLAN: 1. Acute cerebrovascular at the jose alfredo. Continue current treatment plan. Continue supportive care, continue aspirin and Lipitor. Continue physical therapy. 2. Vertigo, possibly from recent cerebrovascular accident. Continue meclizine. 3. Hypertension. Blood pressure well controlled. Will decrease lisinopril and place parameters. Continue to monitor. 4. Diabetes. Continue current insulin regimen. 5. Cranial nerve III palsy. Continue eye patch. 6. History of low back pain. Continue Ultram and Tylenol. 7. Dyslipidemia. Continue statin therapy. 8. Gastrointestinal and deep venous thrombosis prophylaxis. Dictated By: BENIGNO JANSEN/VÍCTOR Conf#: [id number] DID#: [id number]
--- NOTE | 2017-06-27 12:03 | CONS ---
Date/Time of Note Date/Time of Note DATE: 06/27/17 TIME: 12:02 Consult Date/Type/Reason Admit Date/Time Jun 21, 2017 at 13:45 Type of Consultation: nephro/im Subjective right shoulder pain improved Objective min/mod transfer mod ambulation 25 feet Vital Signs Date Time Temp Pulse Resp B/P Pulse Ox O2 Delivery O2 Flow Rate FiO2 06/27/17 07:00 97.3 80 18 90/51 95 06/26/17 08:15 Room Air Intake and Output 06/26/17 06/26/17 06/27/17 14:59 22:59 06:59 Intake Total 550 ml 240 ml Output Total 450 ml Balance 100 ml 240 ml Results/Medications Result Diagram: 06/27/17 0630 06/27/17 0630 Results 24 hrs Laboratory Tests Test 06/26/17 17:35 06/26/17 20:27 06/27/17 06:30 06/27/17 07:59 Bedside Glucose 178 172 135 White Blood Count 8.8 Red Blood Count 4.93 Hemoglobin 15.0 Hematocrit 45.0 Mean Corpuscular Volume 91.3 Mean Corpuscular Hemoglobin 30.4 Mean Corpuscular Hemoglobin Concent 33.3 Red Cell Distribution Width 11.0 L Platelet Count 240 Mean Platelet Volume 11.5 H Neutrophils % 67.4 Lymphocytes % 22.7 Monocytes % 7.2 Eosinophils % 1.5 Basophils % 0.6 Nucleated Red Blood Cells % 0.0 Neutrophils # 5.9 Lymphocytes # 2.0 Monocytes # 0.6 Eosinophils # 0.1 Basophils # 0.1 Nucleated Red Blood Cells # 0.0 Sodium Level 143 Potassium Level 4.1 Chloride Level 104 Carbon Dioxide Level 31 Anion Gap 12 Blood Urea Nitrogen 22 H Creatinine 0.99 Glucose Level 121 Calcium Level 9.5 Phosphorus Level 4.8 Magnesium Level 1.8 Medications Current Medications Docusate Sodium (Colace) 100 mg BID PO Last administered on 06/27/17 09:24; Admin Dose 100 MG; Start 06/21/17 at 21:00 Senna (Senokot) 1 tab HS PO Last administered on 06/26/17 20:29; Admin Dose 1 TAB; Start 06/21/17 at 21:00 Acetaminophen (Tylenol Tab) 650 mg Q4H PRN PO PAIN Last administered on 01:35; Admin Dose 650 MG; Start 06/21/17 at 16:00 Bisacodyl (Dulcolax Supp) 10 mg DAILY PRN [place] CONSTIPATION; Start 06/21/17 at 16:00 Magnesium Hydroxide (Milk Of Mag) 30 ml BID PRN PO CONSTIPATION; Start at 16:00 Lactulose (Enulose) 20 gm DAILY PRN PO CONSTIPATION; Start 06/21/17 at 16:30 Enoxaparin Sodium (Lovenox) 40 mg DAILY SC Last administered on 06/27/17 09: 26; Admin Dose 40 MG; Start 06/22/17 at 09:00 Aspirin (Aspirin) 81 mg DAILY PO Last administered on 06/27/17 09:24; Admin Dose 81 MG; Start 06/22/17 at 09:00 Meclizine HCl (Antivert) 25 mg TID PRN PO VERTIGO Last administered on 08:54; Admin Dose 25 MG; Start 06/21/17 at 16:30 Atorvastatin Calcium (Lipitor) 40 mg DAILY@21 PO Last administered on 20:29; Admin Dose 40 MG; Start 06/21/17 at 21:00 Polyethylene Glycol (Miralax) 17 gm DAILY PRN PO CONSTIPATION; Start 06/21/17 at 16:30 Insulin Glargine (Lantus) 12 unit HS SC Last administered on 06/26/17 20:31; Admin Dose 12 UNIT; Start 06/21/17 at 21:00 Miscellaneous Information 1 ea NOTE XX ; Start 06/21/17 at 16:30 Diagnostic Test (Pha) (Accu-Chek) 1 ea 02 XX Last administered on 06/25/17 02 :23; Admin Dose 1 EA; Start 06/21/17 at 16:30 Miscellaneous Information 1 ea NOTE XX ; Start 06/21/17 at 16:30 Glucose (Glutose) 15 gm Q15M PRN PO DECREASED GLUCOSE; Start 06/21/17 at 16:30 Glucose (Glutose) 22.5 gm Q15M PRN PO DECREASED GLUCOSE; Start 06/21/17 at 16: 30 Dextrose (D50w Syringe) 25 ml Q15M PRN IV DECREASED GLUCOSE; Start 06/21/17 at 16:30 Dextrose (D50w Syringe) 50 ml Q15M PRN IV DECREASED GLUCOSE; Start 06/21/17 at 16:30 Glucagon (Glucagen) 1 mg Q15M PRN IM DECREASED GLUCOSE; Start 06/21/17 at 16: 30 Glucose (Glutose) 15 gm Q15M PRN BUCCAL DECREASED GLUCOSE; Start 06/21/17 at 16:30 Tramadol HCl (Ultram) 50 mg Q6H PRN PO PAIN AND/OR INFLAMMATION Last administered on 06/26/17t 09:18; Admin Dose 50 MG; Start 06/26/17 at 09:00 Lisinopril (Zestril) 2.5 mg DAILY PO ; Start 06/28/17 at 09:00 Assessment/Plan Additional Assessment/Plan Rehab- 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 Continue rehab program. Sling for UE support for ambulation and OOb only. Right vertebral stenosis. Hypertension. Diabetes mellitus. Hyperlipidemia. Chronic low back pain. TALIB SCOTT MD Jun 27, 2017 12:03
[2017-06-27 20:00] VITALS: BP 145/65; RESP 18
[2017-06-27] MEDS: SENNA TAB PO SCH (21:00)
[2017-06-27] MEDS: ATORVASTATIN 40 MG TAB PO SCH (21:34)
[2017-06-27] MEDS: INSULIN GLARGINE [LANtus] 3 ML PEN SC SCH (21:40)
[2017-06-28 02:18] VITALS: BP 123/78; RESP 18
[2017-06-28] MEDS: ACCUCHECK 2 AM XX SCH (02:30)
[2017-06-28 07:00] VITALS: BP 133/72; RESP 18
[2017-06-28] MEDS: Insulin NOVOLOG SS MILD Algorithm (SS with meals and bedtime) SC SCH ×4 (08:37→21:00)
--- NOTE | 2017-06-28 09:40 | PN ---
DATE: 06/28/2017 SUBJECTIVE: The patient is stable. No events overnight. No fevers, chills, nausea or vomiting. OBJECTIVE: VITAL SIGNS: Blood pressure is 123/78, respiration 18, pulse 76, temperature 98.2. HEENT: Head is normocephalic. NECK: Supple. HEART: Regular rate. LUNGS: Show diminished breath sounds at the base. ABDOMEN: Soft, nontender to palpation without rebound or guarding. EXTREMITIES: Negative for clubbing, cyanosis, no edema. DERMATOLOGIC: No rashes. MUSCULOSKELETAL: No joint effusions. NEUROLOGIC: No change in exam. MEDICATIONS: The patient's medications have been reviewed. LABORATORY DATA: Has been reviewed. No other labs. ASSESSMENT AND PLAN: 1. Acute cerebrovascular accident. Continue current treatment plan. Continue supportive care. Co ntinue aspirin and Lipitor. Continue physical therapy. 2. Vertigo, improving. Continue meclizine as needed. 3. Hypertension, well controlled. Continue current blood pressure regimen. 4. Diabetes. Continue current insulin regimen. 5. Cranial nerve III palsy. Continue to monitor. 6. Mild back pain. Continue Ultram and Tylenol. 7. Dyslipidemia. Continue statin therapy. 8. Gastrointestinal and deep venous thrombosis prophylaxis. Dictated By: BENIGNO JANSEN/VÍCTOR Conf#: [id number] DID#: [id number]
[2017-06-28] MEDS: DOCUSATE SODIUM 100 MG CAP PO SCH ×2 (09:45→20:39)
[2017-06-28] MEDS: ASPIRIN 81 MG TAB PO SCH (09:45)
[2017-06-28] MEDS: ENOXAPARIN 40 MG/0.4 ML SYG SC SCH (09:46)
[2017-06-28] MEDS: LISINOPRIL 5 MG TAB PO SCH (09:46)
[2017-06-28] MEDS: traMADol 50 MG TAB PO PRN ×2 (09:52→21:53)
[2017-06-28] MEDS: MECLIZINE 25 MG TAB PO PRN (09:53)
[2017-06-28] MEDS ORDERED: BARIUM SULFATE 135 ML (E-Z HD) PO ONE (12:16)
--- NOTE | 2017-06-28 12:51 | CONS ---
Date/Time of Note Date/Time of Note DATE: 06/28/17 TIME: 12:51 Consult Date/Type/Reason Admit Date/Time Jun 21, 2017 at 13:45 Type of Consultation: nephro/im Subjective doing well Objective pulm-cta min/mod assist Vital Signs Date Time Temp Pulse Resp B/P Pulse Ox O2 Delivery O2 Flow Rate FiO2 06/28/17 07:00 98.0 73 18 133/72 97 06/26/17 08:15 Room Air Intake and Output 06/27/17 06/27/17 06/28/17 15:00 23:00 07:00 Intake Total 1200 ml 350 ml Output Total 400 ml 600 ml 1550 ml Balance -400 ml 600 ml -1200 ml Results/Medications Result Diagram: 06/27/17 0630 06/27/17 0630 Results 24 hrs Laboratory Tests Test 06/27/17 17:23 06/27/17 21:37 06/28/17 08:09 06/28/17 12:18 Bedside Glucose 140 145 149 154 Medications Current Medications Docusate Sodium (Colace) 100 mg BID PO Last administered on 06/28/17 09:45; Admin Dose 100 MG; Start 06/21/17 at 21:00 Senna (Senokot) 1 tab HS PO Last administered on 06/26/17 20:29; Admin Dose 1 TAB; Start 06/21/17 at 21:00 Acetaminophen (Tylenol Tab) 650 mg Q4H PRN PO PAIN Last administered on 01:35; Admin Dose 650 MG; Start 06/21/17 at 16:00 Bisacodyl (Dulcolax Supp) 10 mg DAILY PRN [place] CONSTIPATION; Start 06/21/17 at 16:00 Magnesium Hydroxide (Milk Of Mag) 30 ml BID PRN PO CONSTIPATION; Start at 16:00 Lactulose (Enulose) 20 gm DAILY PRN PO CONSTIPATION; Start 06/21/17 at 16:30 Enoxaparin Sodium (Lovenox) 40 mg DAILY SC Last administered on 06/28/17 09: 46; Admin Dose 40 MG; Start 06/22/17 at 09:00 Aspirin (Aspirin) 81 mg DAILY PO Last administered on 06/28/17 09:45; Admin Dose 81 MG; Start 06/22/17 at 09:00 Meclizine HCl (Antivert) 25 mg TID PRN PO VERTIGO Last administered on 09:53; Admin Dose 25 MG; Start 06/21/17 at 16:30 Atorvastatin Calcium (Lipitor) 40 mg DAILY@21 PO Last administered on 21:34; Admin Dose 40 MG; Start 06/21/17 at 21:00 Polyethylene Glycol (Miralax) 17 gm DAILY PRN PO CONSTIPATION; Start 06/21/17 at 16:30 Insulin Glargine (Lantus) 12 unit HS SC Last administered on 06/27/17 21:40; Admin Dose 12 UNIT; Start 06/21/17 at 21:00 Miscellaneous Information 1 ea NOTE XX ; Start 06/21/17 at 16:30 Diagnostic Test (Pha) (Accu-Chek) 1 ea 02 XX Last administered on 06/25/17 02 :23; Admin Dose 1 EA; Start 06/21/17 at 16:30 Miscellaneous Information 1 ea NOTE XX ; Start 06/21/17 at 16:30 Glucose (Glutose) 15 gm Q15M PRN PO DECREASED GLUCOSE; Start 06/21/17 at 16:30 Glucose (Glutose) 22.5 gm Q15M PRN PO DECREASED GLUCOSE; Start 06/21/17 at 16: 30 Dextrose (D50w Syringe) 25 ml Q15M PRN IV DECREASED GLUCOSE; Start 06/21/17 at 16:30 Dextrose (D50w Syringe) 50 ml Q15M PRN IV DECREASED GLUCOSE; Start 06/21/17 at 16:30 Glucagon (Glucagen) 1 mg Q15M PRN IM DECREASED GLUCOSE; Start 06/21/17 at 16: 30 Glucose (Glutose) 15 gm Q15M PRN BUCCAL DECREASED GLUCOSE; Start 06/21/17 at 16:30 Tramadol HCl (Ultram) 50 mg Q6H PRN PO PAIN AND/OR INFLAMMATION Last administered on 06/28/17 09:52; Admin Dose 50 MG; Start 06/26/17 at 09:00 Lisinopril (Zestril) 2.5 mg DAILY PO Last administered on 06/28/17 09:46; Admin Dose 2.5 MG; Start 06/28/17 at 09:00 Assessment/Plan Additional Assessment/Plan Rehab- 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 Continue rehab interdisciplinary treatment plan Right vertebral stenosis. Hypertension. Diabetes mellitus. Hyperlipidemia. Chronic low back pain. TALIB SCOTT MD Jun 28, 2017 12:51
--- NOTE | 2017-06-28 15:18 | RADRPT ---
PROCEDURE: Video swallow examination of the esophagus CLINICAL INDICATION: aspiration TECHNIQUE: Real time video cine fluoroscopy of the lateral neck was performed. The patient was gi yesenia barium in multiple different consistencies by the speech pathologist. Fluoroscopy time: 1.6 min Number of images/cine sequences: 20 COMPARISON: None. FINDINGS: There is pooling of contrast in the vallecula and piriform sinus with evidence of penetration puree and soft solid consistencies. There is no evidence of aspiration. IMPRESSION: Pooling of contrast in the vallecula and piriform sinus with evidence of penetration. No evidence of aspiration. Please refer to the speech pathology notes for more information and recommendations. RPTAT: KK .Freddie Adkins MD, Date Time Electronically viewed and signed by .Freddie Adkins MD, on 06/28/2017 15:17 .S/
[2017-06-28 20:00] VITALS: BP 132/77; RESP 18
[2017-06-28] MEDS: INSULIN GLARGINE [LANtus] 3 ML PEN SC SCH (20:35)
[2017-06-28] MEDS: ATORVASTATIN 40 MG TAB PO SCH (20:39)
[2017-06-28] MEDS: SENNA TAB PO SCH (20:39)
[2017-06-29 02:00] VITALS: BP 126/74; RESP 18
[2017-06-29] MEDS: ACCUCHECK 2 AM XX SCH (02:00)
[2017-06-29] MEDS: Insulin NOVOLOG SS MILD Algorithm (SS with meals and bedtime) SC SCH ×4 (07:05→20:35)
[2017-06-29 07:30] VITALS: BP 107/65; RESP 18
[2017-06-29] MEDS: LISINOPRIL 5 MG TAB PO SCH (10:10)
[2017-06-29] MEDS: ASPIRIN 81 MG TAB PO SCH (10:11)
[2017-06-29] MEDS: DOCUSATE SODIUM 100 MG CAP PO SCH ×2 (10:11→20:33)
[2017-06-29] MEDS: ENOXAPARIN 40 MG/0.4 ML SYG SC SCH (10:12)
--- NOTE | 2017-06-29 11:09 | PN ---
DATE: 06/29/2017 SUBJECTIVE: The patient is stable. No events overnight. No fevers, chills, nausea, vomiting. OBJECTIVE: VITAL SIGNS: Blood pressure is 107/65, temperature 98.6, pulse 72, respirations 18. HEENT: Head is normocephalic. NECK: Supple. HEART: Regular rate. LUNGS: Show diminished breath sounds at base. ABDOMEN: Soft, nontender to palpation without rebound or guarding. EXTREMITIES: Negative for clubbing, cyanosis. No edema. DERMATOLOGIC: No rashes. MUSCULOSKELETAL: No joint effusions. NEUROLOGIC: No change in exam. MEDICATIONS: Have been reviewed. LABORATORY DATA: Has been reviewed. No new labs. ASSESSMENT AND PLAN: 1. Acute cerebrovascular accident. The patient is clinically improving. Continue current treatmen t plan. Continue medical management. Continue PT. 2. Vertigo, improving. Continue meclizine. 3. Hypertension, controlled. Continue current blood pressure regimen. 4. Diabetes. Continue current insulin regimen. 5. Mild back pain, improved. Continue current medical management. 6. Dyslipidemia. Continue statin therapy. 7. Cranial nerve III palsy, improving. 8. Gastrointestinal and deep vein thrombosis prophylaxis. Dictated By: BENIGNO JANSEN/VÍCTOR Conf#: [id number] DID#: [id number]
--- NOTE | 2017-06-29 13:19 | CONS ---
Date/Time of Note Date/Time of Note DATE: 06/29/17 TIME: 13:18 Consult Date/Type/Reason Admit Date/Time Jun 21, 2017 at 13:45 Type of Consultation: nephro/im Subjective motivated Objective pulm-cta min/mod assist Vital Signs Date Time Temp Pulse Resp B/P Pulse Ox O2 Delivery O2 Flow Rate FiO2 06/29/17 07:30 98.6 72 18 107/65 96 06/26/17 08:15 Room Air Intake and Output 06/28/17 06/28/17 06/29/17 15:00 23:00 07:00 Intake Total 1700 ml 1500 ml Output Total 800 ml 1400 ml Balance 900 ml 100 ml Results/Medications Result Diagram: 06/27/17 0630 06/27/17 0630 Results 24 hrs Laboratory Tests Test 06/28/17 17:56 06/28/17 20:08 06/29/17 08:47 06/29/17 12:19 Bedside Glucose 141 151 120 166 Test 06/29/17 13:02 Bedside Glucose 181 Medications Current Medications Docusate Sodium (Colace) 100 mg BID PO Last administered on 06/29/17 10:11; Admin Dose 100 MG; Start 06/21/17 at 21:00 Senna (Senokot) 1 tab HS PO Last administered on 06/28/17 20:39; Admin Dose 1 TAB; Start 06/21/17 at 21:00 Acetaminophen (Tylenol Tab) 650 mg Q4H PRN PO PAIN Last administered on 01:35; Admin Dose 650 MG; Start 06/21/17 at 16:00 Bisacodyl (Dulcolax Supp) 10 mg DAILY PRN [place] CONSTIPATION; Start 06/21/17 at 16:00 Magnesium Hydroxide (Milk Of Mag) 30 ml BID PRN PO CONSTIPATION; Start at 16:00 Lactulose (Enulose) 20 gm DAILY PRN PO CONSTIPATION; Start 06/21/17 at 16:30 Enoxaparin Sodium (Lovenox) 40 mg DAILY SC Last administered on 06/29/17 10: 12; Admin Dose 40 MG; Start 06/22/17 at 09:00 Aspirin (Aspirin) 81 mg DAILY PO Last administered on 06/29/17 10:11; Admin Dose 81 MG; Start 06/22/17 at 09:00 Meclizine HCl (Antivert) 25 mg TID PRN PO VERTIGO Last administered on 09:53; Admin Dose 25 MG; Start 06/21/17 at 16:30 Atorvastatin Calcium (Lipitor) 40 mg DAILY@21 PO Last administered on 20:39; Admin Dose 40 MG; Start 06/21/17 at 21:00 Polyethylene Glycol (Miralax) 17 gm DAILY PRN PO CONSTIPATION; Start 06/21/17 at 16:30 Insulin Glargine (Lantus) 12 unit HS SC Last administered on 06/28/17 20:35; Admin Dose 12 UNIT; Start 06/21/17 at 21:00 Miscellaneous Information 1 ea NOTE XX ; Start 06/21/17 at 16:30 Diagnostic Test (Pha) (Accu-Chek) 1 ea 02 XX Last administered on 06/25/17 02 :23; Admin Dose 1 EA; Start 06/21/17 at 16:30 Miscellaneous Information 1 ea NOTE XX ; Start 06/21/17 at 16:30 Glucose (Glutose) 15 gm Q15M PRN PO DECREASED GLUCOSE; Start 06/21/17 at 16:30 Glucose (Glutose) 22.5 gm Q15M PRN PO DECREASED GLUCOSE; Start 06/21/17 at 16: 30 Dextrose (D50w Syringe) 25 ml Q15M PRN IV DECREASED GLUCOSE; Start 06/21/17 at 16:30 Dextrose (D50w Syringe) 50 ml Q15M PRN IV DECREASED GLUCOSE; Start 06/21/17 at 16:30 Glucagon (Glucagen) 1 mg Q15M PRN IM DECREASED GLUCOSE; Start 06/21/17 at 16: 30 Glucose (Glutose) 15 gm Q15M PRN BUCCAL DECREASED GLUCOSE; Start 06/21/17 at 16:30 Tramadol HCl (Ultram) 50 mg Q6H PRN PO PAIN AND/OR INFLAMMATION Last administered on 06/28/17 21:53; Admin Dose 50 MG; Start 06/26/17 at 09:00 Lisinopril (Zestril) 2.5 mg DAILY PO Last administered on 06/29/17 10:10; Admin Dose 2.5 MG; Start 06/28/17 at 09:00 Assessment/Plan Additional Assessment/Plan Rehab- 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 Continue rehab activities Right vertebral stenosis. Hypertension. Diabetes mellitus. Hyperlipidemia. Chronic low back pain. TALIB SCOTT MD Jun 29, 2017 13:19
[2017-06-29 14:00] VITALS: BP 107/63; RESP 20
[2017-06-29 20:00] VITALS: BP 141/74; RESP 18
[2017-06-29] MEDS: SENNA TAB PO SCH (20:33)
[2017-06-29] MEDS: ATORVASTATIN 40 MG TAB PO SCH (20:33)
[2017-06-29] MEDS: INSULIN GLARGINE [LANtus] 3 ML PEN SC SCH (20:37)
[2017-06-29] MEDS: traMADol 50 MG TAB PO PRN (20:38)
[2017-06-30 02:00] VITALS: BP 128/72; RESP 18
[2017-06-30] MEDS: ACCUCHECK 2 AM XX SCH (02:00)
[2017-06-30 07:30] VITALS: BP 104/56; PULSE 66; RESP 18
[2017-06-30] MEDS: Insulin NOVOLOG SS MILD Algorithm (SS with meals and bedtime) SC SCH ×4 (08:00→21:36)
[2017-06-30] MEDS: DOCUSATE SODIUM 100 MG CAP PO SCH ×2 (08:58→21:05)
[2017-06-30] MEDS: ASPIRIN 81 MG TAB PO SCH (08:58)
[2017-06-30] MEDS: LISINOPRIL 5 MG TAB PO SCH (09:00)
[2017-06-30] MEDS: ENOXAPARIN 40 MG/0.4 ML SYG SC SCH (09:03)
--- NOTE | 2017-06-30 10:23 | PN ---
DATE: 06/30/2017 SUBJECTIVE: The patient is stable. No events overnight. No fevers, chills, nausea, vomiting, no s hortness breath. OBJECTIVE: VITAL SIGNS: Blood pressure is 104/56, respirations 18, pulse 66, temperature 97.5. HEENT: Head is normocephalic. NECK: Supple. HEART: Regular rate. LUNGS: Show diminished breath sounds at the base. ABDOMEN: Soft, nontender to palpation without rebound or guarding. EXTREMITIES: Negative for clubbing, cyanosis, no edema. DERMATOLOGIC: No rashes. MUSCULOSKELETAL: No joint effusions. NEUROLOGIC: No change in exam. MEDICATIONS: Have been reviewed. LABORATORY DATA: Has been reviewed. No new labs. ASSESSMENT AND PLAN: 1. Acute cerebrovascular accident. The patient is clinically improving. Continue current treatmen t plan. Continue medical management. Continue physical therapy. 2. Metabolic improved. Continue meclizine 3. Hypertension. Continue current blood pressure regimen. 4. Diabetes. Continue current insulin regimen. 5. Back pain, improved. Continue medical management and physical therapy. 6. Dyslipidemia. Continue statin therapy. 7. Cranial nerve III palsy. 8. Gastrointestinal and deep vein thrombosis prophylaxis. Dictated By: BENIGNO JANSEN/VÍCTOR Conf#: [id number] DID#: [id number]
--- NOTE | 2017-06-30 12:05 | CONS ---
Date/Time of Note Date/Time of Note DATE: 06/30/17 TIME: 12:04 Consult Date/Type/Reason Admit Date/Time Jun 21, 2017 at 13:45 Type of Consultation: nephro/im Subjective Patient motivated Objective Vital Signs Date Time Temp Pulse Resp B/P Pulse Ox O2 Delivery O2 Flow Rate FiO2 06/30/17 07:30 97.5 66 18 104/56 97 Room Air Intake and Output 06/29/17 06/29/17 06/30/17 15:00 23:00 07:00 Intake Total 1340 ml 750 ml Output Total 2 ml Balance 1338 ml 750 ml Exam Lungs clear abdomen soft Min mod assist ambulation Results/Medications Result Diagram: 06/27/17 0630 06/27/17 0630 Results 24 hrs Laboratory Tests Test 06/29/17 12:19 06/29/17 13:02 06/29/17 17:46 06/29/17 20:35 Bedside Glucose 166 181 149 153 Test 06/30/17 02:34 06/30/17 08:06 Bedside Glucose 135 129 Medications Current Medications Docusate Sodium (Colace) 100 mg BID PO Last administered on 06/30/17 08:58; Admin Dose 100 MG; Start 06/21/17 at 21:00 Senna (Senokot) 1 tab HS PO Last administered on 06/29/17 20:33; Admin Dose 1 TAB; Start 06/21/17 at 21:00 Acetaminophen (Tylenol Tab) 650 mg Q4H PRN PO PAIN Last administered on 01:35; Admin Dose 650 MG; Start 06/21/17 at 16:00 Bisacodyl (Dulcolax Supp) 10 mg DAILY PRN [place] CONSTIPATION; Start 06/21/17 at 16:00 Magnesium Hydroxide (Milk Of Mag) 30 ml BID PRN PO CONSTIPATION; Start at 16:00 Lactulose (Enulose) 20 gm DAILY PRN PO CONSTIPATION; Start 06/21/17 at 16:30 Enoxaparin Sodium (Lovenox) 40 mg DAILY SC Last administered on 06/30/17 09: 03; Admin Dose 40 MG; Start 06/22/17 at 09:00 Aspirin (Aspirin) 81 mg DAILY PO Last administered on 06/30/17 08:58; Admin Dose 81 MG; Start 06/22/17 at 09:00 Meclizine HCl (Antivert) 25 mg TID PRN PO VERTIGO Last administered on 09:53; Admin Dose 25 MG; Start 06/21/17 at 16:30 Atorvastatin Calcium (Lipitor) 40 mg DAILY@21 PO Last administered on 20:33; Admin Dose 40 MG; Start 06/21/17 at 21:00 Polyethylene Glycol (Miralax) 17 gm DAILY PRN PO CONSTIPATION; Start 06/21/17 at 16:30 Insulin Glargine (Lantus) 12 unit HS SC Last administered on 06/29/17 20:37; Admin Dose 12 UNIT; Start 06/21/17 at 21:00 Miscellaneous Information 1 ea NOTE XX ; Start 06/21/17 at 16:30 Diagnostic Test (Pha) (Accu-Chek) 1 ea 02 XX Last administered on 06/25/17 02 :23; Admin Dose 1 EA; Start 06/21/17 at 16:30 Miscellaneous Information 1 ea NOTE XX ; Start 06/21/17 at 16:30 Glucose (Glutose) 15 gm Q15M PRN PO DECREASED GLUCOSE; Start 06/21/17 at 16:30 Glucose (Glutose) 22.5 gm Q15M PRN PO DECREASED GLUCOSE; Start 06/21/17 at 16: 30 Dextrose (D50w Syringe) 25 ml Q15M PRN IV DECREASED GLUCOSE; Start 06/21/17 at 16:30 Dextrose (D50w Syringe) 50 ml Q15M PRN IV DECREASED GLUCOSE; Start 06/21/17 at 16:30 Glucagon (Glucagen) 1 mg Q15M PRN IM DECREASED GLUCOSE; Start 06/21/17 at 16: 30 Glucose (Glutose) 15 gm Q15M PRN BUCCAL DECREASED GLUCOSE; Start 06/21/17 at 16:30 Tramadol HCl (Ultram) 50 mg Q6H PRN PO PAIN AND/OR INFLAMMATION Last administered on 06/29/17 20:38; Admin Dose 50 MG; Start 06/26/17 at 09:00 Lisinopril (Zestril) 2.5 mg DAILY PO Last administered on 06/29/17 10:10; Admin Dose 2.5 MG; Start 06/28/17 at 09:00 Assessment/Plan Additional Assessment/Plan Rehab- 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 Excellent progress with rehab activities Right vertebral stenosis. Hypertension. Diabetes mellitus. Hyperlipidemia. Chronic low back pain. TALIB SCOTT MD Jun 30, 2017 12:05
[2017-06-30 14:28] VITALS: BP 140/81; RESP 18
[2017-06-30 20:00] VITALS: BP 130/69; RESP 18
[2017-06-30] MEDS: SENNA TAB PO SCH (21:00)
[2017-06-30] MEDS: ATORVASTATIN 40 MG TAB PO SCH (21:06)
[2017-06-30] MEDS: ACETAMINOPHEN 325 MG TAB PO PRN (21:06)
[2017-06-30] MEDS: INSULIN GLARGINE [LANtus] 3 ML PEN SC SCH (21:25)
[2017-07-01 02:00] VITALS: BP 128/72; RESP 18
[2017-07-01] MEDS: ACCUCHECK 2 AM XX SCH (02:00)
[2017-07-01 07:30] VITALS: BP 113/80; RESP 20
[2017-07-01] MEDS: Insulin NOVOLOG SS MILD Algorithm (SS with meals and bedtime) SC SCH ×4 (08:05→21:03)
[2017-07-01] MEDS: ASPIRIN 81 MG TAB PO SCH (09:02)
[2017-07-01] MEDS: DOCUSATE SODIUM 100 MG CAP PO SCH ×2 (09:02→21:02)
[2017-07-01] MEDS: LISINOPRIL 5 MG TAB PO SCH (09:03)
[2017-07-01] MEDS: ENOXAPARIN 40 MG/0.4 ML SYG SC SCH (09:08)
--- NOTE | 2017-07-01 11:05 | CONS ---
Date/Time of Note Date/Time of Note DATE: 07/01/17 TIME: 11:05 Consult Date/Type/Reason Admit Date/Time Jun 21, 2017 at 13:45 Type of Consultation: nephro/im Subjective Motivated Objective pulm-cta min/mod Vital Signs Date Time Temp Pulse Resp B/P Pulse Ox O2 Delivery O2 Flow Rate FiO2 07/01/17 02:00 98.3 75 18 128/72 94 06/30/17 07:30 Room Air Intake and Output 06/30/17 06/30/17 07/01/17 15:00 23:00 07:00 Intake Total 950 ml Output Total 400 ml Balance 550 ml Results/Medications Result Diagram: 06/27/17 0630 06/27/17 0630 Results 24 hrs Laboratory Tests Test 06/30/17 12:32 06/30/17 17:21 06/30/17 21:04 07/01/17 01:50 Bedside Glucose 163 161 220 128 Test 07/01/17 08:05 Bedside Glucose 118 Medications Current Medications Docusate Sodium (Colace) 100 mg BID PO Last administered on 07/01/17 09:02; Admin Dose 100 MG; Start 06/21/17 at 21:00 Senna (Senokot) 1 tab HS PO Last administered on 06/29/17 20:33; Admin Dose 1 TAB; Start 06/21/17 at 21:00 Acetaminophen (Tylenol Tab) 650 mg Q4H PRN PO PAIN Last administered on 21:06; Admin Dose 650 MG; Start 06/21/17 at 16:00 Bisacodyl (Dulcolax Supp) 10 mg DAILY PRN [place] CONSTIPATION; Start 06/21/17 at 16:00 Magnesium Hydroxide (Milk Of Mag) 30 ml BID PRN PO CONSTIPATION; Start at 16:00 Lactulose (Enulose) 20 gm DAILY PRN PO CONSTIPATION; Start 06/21/17 at 16:30 Enoxaparin Sodium (Lovenox) 40 mg DAILY SC Last administered on 07/01/17 09: 08; Admin Dose 40 MG; Start 06/22/17 at 09:00 Aspirin (Aspirin) 81 mg DAILY PO Last administered on 07/01/17 09:02; Admin Dose 81 MG; Start 06/22/17 at 09:00 Meclizine HCl (Antivert) 25 mg TID PRN PO VERTIGO Last administered on 09:53; Admin Dose 25 MG; Start 06/21/17 at 16:30 Atorvastatin Calcium (Lipitor) 40 mg DAILY@21 PO Last administered on 21:06; Admin Dose 40 MG; Start 06/21/17 at 21:00 Polyethylene Glycol (Miralax) 17 gm DAILY PRN PO CONSTIPATION; Start 06/21/17 at 16:30 Insulin Glargine (Lantus) 12 unit HS SC Last administered on 06/30/17 21:25; Admin Dose 12 UNIT; Start 06/21/17 at 21:00 Miscellaneous Information 1 ea NOTE XX ; Start 06/21/17 at 16:30 Diagnostic Test (Pha) (Accu-Chek) 1 ea 02 XX Last administered on 06/25/17 02 :23; Admin Dose 1 EA; Start 06/21/17 at 16:30 Miscellaneous Information 1 ea NOTE XX ; Start 06/21/17 at 16:30 Glucose (Glutose) 15 gm Q15M PRN PO DECREASED GLUCOSE; Start 06/21/17 at 16:30 Glucose (Glutose) 22.5 gm Q15M PRN PO DECREASED GLUCOSE; Start 06/21/17 at 16: 30 Dextrose (D50w Syringe) 25 ml Q15M PRN IV DECREASED GLUCOSE; Start 06/21/17 at 16:30 Dextrose (D50w Syringe) 50 ml Q15M PRN IV DECREASED GLUCOSE; Start 06/21/17 at 16:30 Glucagon (Glucagen) 1 mg Q15M PRN IM DECREASED GLUCOSE; Start 06/21/17 at 16: 30 Glucose (Glutose) 15 gm Q15M PRN BUCCAL DECREASED GLUCOSE; Start 06/21/17 at 16:30 Tramadol HCl (Ultram) 50 mg Q6H PRN PO PAIN AND/OR INFLAMMATION Last administered on 06/29/17 20:38; Admin Dose 50 MG; Start 06/26/17 at 09:00 Lisinopril (Zestril) 2.5 mg DAILY PO Last administered on 07/01/17 09:03; Admin Dose 2.5 MG; Start 06/28/17 at 09:00 Assessment/Plan Additional Assessment/Plan Rehab- 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 Continue rehab activities Right vertebral stenosis. Hypertension. Diabetes mellitus. Hyperlipidemia. Chronic low back pain. TALIB SCOTT MD Jul 01, 2017 11:05
[2017-07-01 14:00] VITALS: BP 126/78; RESP 20
[2017-07-01 19:54] VITALS: BP 128/73; RESP 18
[2017-07-01] MEDS: SENNA TAB PO SCH (21:02)
[2017-07-01] MEDS: ATORVASTATIN 40 MG TAB PO SCH (21:02)
[2017-07-01] MEDS: INSULIN GLARGINE [LANtus] 3 ML PEN SC SCH (21:04)
[2017-07-02 02:01] VITALS: BP 145/86; RESP 18
[2017-07-02] MEDS: ACCUCHECK 2 AM XX SCH (02:08)
[2017-07-02 07:00] VITALS: BP 130/79; RESP 18
[2017-07-02] MEDS: Insulin NOVOLOG SS MILD Algorithm (SS with meals and bedtime) SC SCH ×4 (07:05→20:38)
[2017-07-02 08:00] VITALS: BP 130/79; RESP 18
[2017-07-02] MEDS: ASPIRIN 81 MG TAB PO SCH (08:17)
[2017-07-02] MEDS: DOCUSATE SODIUM 100 MG CAP PO SCH ×2 (08:17→20:38)
[2017-07-02] MEDS: LISINOPRIL 5 MG TAB PO SCH (08:17)
[2017-07-02] MEDS: ENOXAPARIN 40 MG/0.4 ML SYG SC SCH (08:17)
--- NOTE | 2017-07-02 15:51 | PN ---
DATE: 07/02/2017 SUBJECTIVE: The patient is stable. No events overnight. No fevers, chills, nausea, vomiting. OBJECTIVE: VITAL SIGNS: Blood pressure is 145/86, respiration 18, pulse 69, temperature 98.0. HEENT: Head is normocephalic. NECK: Supple. HEART: Regular rate. LUNGS: Show diminished breath sounds at base. ABDOMEN: Soft, nontender to palpation. No rebound or guarding. EXTREMITIES: Negative for clubbing, cyanosis, no edema. DERMATOLOGIC: No rashes. MUSCULOSKELETAL: No joint effusions. NEUROLOGIC: No change in exam. MEDICATIONS: The patient's medications are reviewed. LABORATORY DATA: Has been reviewed. ASSESSMENT AND PLAN: 1. Acute cerebrovascular accident. The patient is clinically improving. Continue current treatmen t plan. 2. Hypertension. Continue current blood pressure regimen. 3. Diabetes. Continue current insulin regimen. 4. Back pain, improved. Continue current medical management and physical therapy. 5. Dyslipidemia. Continue statin therapy. 6. Vertigo, improving. Continue medical management. 7. Gastrointestinal and deep venous thrombosis prophylaxis. Dictated By: BENIGNO JANSEN/VÍCTOR Conf#: [id number] DID#: [id number]
[2017-07-02 20:00] VITALS: BP 107/69; RESP 18
[2017-07-02] MEDS: SENNA TAB PO SCH (20:38)
[2017-07-02] MEDS: ATORVASTATIN 40 MG TAB PO SCH (20:38)
[2017-07-02] MEDS: INSULIN GLARGINE [LANtus] 3 ML PEN SC SCH (20:40)
[2017-07-03 02:00] VITALS: BP 104/64; RESP 18
[2017-07-03] MEDS: ACCUCHECK 2 AM XX SCH (02:00)
[2017-07-03] MEDS: Insulin NOVOLOG SS MILD Algorithm (SS with meals and bedtime) SC SCH ×4 (07:05→21:00)
[2017-07-03 07:30] VITALS: BP 114/61; RESP 18
--- NOTE | 2017-07-03 07:51 | PN ---
DATE: 07/01/2017 SUBJECTIVE: The patient is stable. No events overnight. No fevers, chills, nausea or vomiting. OBJECTIVE: VITAL SIGNS: Blood pressure is 138/80, respirations 20, pulse 60, temperature 98.4. HEENT: Head is normocephalic. NECK: Supple. HEART: Regular rate. LUNGS: Show diminished breath sounds at the bases. ABDOMEN: Soft, nontender to palpation without rebound or guarding. EXTREMITIES: Negative for clubbing or cyanosis. No edema. DERMATOLOGIC: No rashes. MUSCULOSKELETAL: No joint effusions. NEUROLOGIC: No change in exam. MEDICATIONS: Have been reviewed. LABORATORY DATA: Has been reviewed. ASSESSMENT AND PLAN: 1. Acute cerebrovascular accident. The patient is clinically improving. Continue current treatmen t plan. Continue medical management. 2. Hypertension. Continue current blood pressure regimen. 3. Diabetes. Continue current insulin regimen. 4. Back pain, improved. 5. Dyslipidemia. Continue statin therapy. 6. Vertigo, improved. Continue meclizine p.r.n. 7. Gastrointestinal and deep venous thrombosis prophylaxis. Dictated By: BENIGNO JANSEN/VÍCTOR Conf#: [id number] DID#: [id number]
--- NOTE | 2017-07-03 09:19 | PN ---
DATE: 07/03/2017 SUBJECTIVE: The patient is stable. No events overnight. No fevers, chills, nausea, vomiting. OBJECTIVE: VITAL SIGNS: Blood pressure is 104/64, respiration 18, pulse 79, temperature 98.0. HEENT: Head is normocephalic. NECK: Supple. HEART: Regular rate. LUNGS: Show diminished breath sounds at base. ABDOMEN: Soft, nontender to palpation. No rebound or guarding. EXTREMITIES: Negative for clubbing, cyanosis, no edema. DERMATOLOGIC: No rashes. MUSCULOSKELETAL: No joint effusions. NEUROLOGIC: No change in exam. MEDICATIONS: The patient's medications have been reviewed. LABORATORY DATA: Has been reviewed. No new labs. ASSESSMENT AND PLAN: 1. Acute cerebrovascular accident. The patient is clinically improving. Continue current treatmen t plan. Continue medical management. 2. Hypertension. Continue current blood pressure regimen. 3. Diabetes. Continue Accu-Cheks and insulin sliding scale. 4. Back pain, improved. 5. Dyslipidemia. Continue statin therapy. 6. Vertigo, improved. Continue meclizine. 7. Gastrointestinal and deep venous thrombosis prophylaxis. Dictated By: BENIGNO JANSEN/VÍCTOR Conf#: [id number] DID#: [id number]
[2017-07-03] MEDS: DOCUSATE SODIUM 100 MG CAP PO SCH ×2 (09:21→21:02)
[2017-07-03] MEDS: ASPIRIN 81 MG TAB PO SCH (09:21)
[2017-07-03] MEDS: ENOXAPARIN 40 MG/0.4 ML SYG SC SCH (09:21)
[2017-07-03] MEDS: LISINOPRIL 5 MG TAB PO SCH (09:21)
--- NOTE | 2017-07-03 12:31 | CONS ---
Date/Time of Note Date/Time of Note DATE: 07/03/17 TIME: 12:31 Consult Date/Type/Reason Admit Date/Time Jun 21, 2017 at 13:45 Type of Consultation: nephro/im Objective Vital Signs Date Time Temp Pulse Resp B/P Pulse Ox O2 Delivery O2 Flow Rate FiO2 07/03/17 07:30 98.6 64 18 114/61 97 07/02/17 08:00 Room Air Intake and Output 07/02/17 07/02/17 07/03/17 15:00 23:00 07:00 Intake Total 800 ml 900 ml Output Total 600 ml 650 ml Balance 200 ml 250 ml INTERDISCIPLINARY TEAM CONFERENCE BOWEL- Cont BLADDER-Cont SKIN- intact OT- DRESSING-min BATHING-min TOILETING-min PT- BED MOBILITY-min TRANSFERS-min AMBULATION-min 60 feet SPEECH- COGNITION-AK DYPHAGIA-recular with nectar thick liquids A/P- Interdisciplinary team conference held today. Please see interdisciplinary sheet. Working toward d.c. on 07/10 with post discharge follow up of physical therapy, occupational therapy. Results/Medications Results 24 hrs Laboratory Tests Test 07/02/17 17:29 07/02/17 20:28 07/03/17 07:58 07/03/17 12:13 Bedside Glucose 147 168 107 167 Medications Current Medications Docusate Sodium (Colace) 100 mg BID PO Last administered on 07/03/17 09:21; Admin Dose 100 MG; Start 06/21/17 at 21:00 Senna (Senokot) 1 tab HS PO Last administered on 07/02/17 20:38; Admin Dose 1 TAB; Start 06/21/17 at 21:00 Acetaminophen (Tylenol Tab) 650 mg Q4H PRN PO PAIN Last administered on 21:06; Admin Dose 650 MG; Start 06/21/17 at 16:00 Bisacodyl (Dulcolax Supp) 10 mg DAILY PRN [place] CONSTIPATION; Start 06/21/17 at 16:00 Magnesium Hydroxide (Milk Of Mag) 30 ml BID PRN PO CONSTIPATION; Start at 16:00 Lactulose (Enulose) 20 gm DAILY PRN PO CONSTIPATION; Start 06/21/17 at 16:30 Enoxaparin Sodium (Lovenox) 40 mg DAILY SC Last administered on 07/03/17 09: 21; Admin Dose 40 MG; Start 06/22/17 at 09:00 Aspirin (Aspirin) 81 mg DAILY PO Last administered on 07/03/17 09:21; Admin Dose 81 MG; Start 06/22/17 at 09:00 Meclizine HCl (Antivert) 25 mg TID PRN PO VERTIGO Last administered on 09:53; Admin Dose 25 MG; Start 06/21/17 at 16:30 Atorvastatin Calcium (Lipitor) 40 mg DAILY@21 PO Last administered on 20:38; Admin Dose 40 MG; Start 06/21/17 at 21:00 Polyethylene Glycol (Miralax) 17 gm DAILY PRN PO CONSTIPATION; Start 06/21/17 at 16:30 Insulin Glargine (Lantus) 12 unit HS SC Last administered on 07/02/17 20:40; Admin Dose 12 UNIT; Start 06/21/17 at 21:00 Diagnostic Test (Pha) (Accu-Chek) 1 ea 02 XX Last administered on 07/02/17 02 :08; Admin Dose 1 EA; Start 06/21/17 at 16:30 Miscellaneous Information 1 ea NOTE XX ; Start 06/21/17 at 16:30 Glucose (Glutose) 15 gm Q15M PRN PO DECREASED GLUCOSE; Start 06/21/17 at 16:30 Glucose (Glutose) 22.5 gm Q15M PRN PO DECREASED GLUCOSE; Start 06/21/17 at 16: 30 Dextrose (D50w Syringe) 25 ml Q15M PRN IV DECREASED GLUCOSE; Start 06/21/17 at 16:30 Dextrose (D50w Syringe) 50 ml Q15M PRN IV DECREASED GLUCOSE; Start 06/21/17 at 16:30 Glucagon (Glucagen) 1 mg Q15M PRN IM DECREASED GLUCOSE; Start 06/21/17 at 16: 30 Glucose (Glutose) 15 gm Q15M PRN BUCCAL DECREASED GLUCOSE; Start 06/21/17 at 16:30 Tramadol HCl (Ultram) 50 mg Q6H PRN PO PAIN AND/OR INFLAMMATION Last administered on 06/29/17 20:38; Admin Dose 50 MG; Start 06/26/17 at 09:00 Lisinopril (Zestril) 2.5 mg DAILY PO Last administered on 07/03/17 09:21; Admin Dose 2.5 MG; Start 06/28/17 at 09:00 TALIB SCOTT MD Jul 03, 2017 12:31
[2017-07-03 14:00] VITALS: BP 120/77; RESP 18
[2017-07-03 20:00] VITALS: BP 127/73; RESP 18
[2017-07-03] MEDS: ATORVASTATIN 40 MG TAB PO SCH (21:02)
[2017-07-03] MEDS: SENNA TAB PO SCH (21:02)
[2017-07-03] MEDS: INSULIN GLARGINE [LANtus] 3 ML PEN SC SCH (21:03)
[2017-07-04 02:00] VITALS: BP 122/70; RESP 18
[2017-07-04] MEDS: ACCUCHECK 2 AM XX SCH (02:00)
[2017-07-04 07:00] VITALS: BP 127/75; RESP 18
[2017-07-04] MEDS: Insulin NOVOLOG SS MILD Algorithm (SS with meals and bedtime) SC SCH ×4 (07:05→22:00)
[2017-07-04] MEDS: LISINOPRIL 5 MG TAB PO SCH (08:41)
[2017-07-04] MEDS: DOCUSATE SODIUM 100 MG CAP PO SCH ×2 (08:41→22:03)
[2017-07-04] MEDS: ASPIRIN 81 MG TAB PO SCH (08:41)
[2017-07-04] MEDS: ENOXAPARIN 40 MG/0.4 ML SYG SC SCH (08:45)
--- NOTE | 2017-07-04 09:07 | PN ---
DATE: 07/04/2017 SUBJECTIVE: The patient is stable. No events overnight. No fevers, chills, nausea, vomiting. OBJECTIVE: VITAL SIGNS: Blood pressure is 122/70, respirations 18, pulse 64, temperature 97.9. HEENT: Head is normocephalic. NECK: Supple. HEART: Regular rate. LUNGS: Show diminished breath sounds at base. ABDOMEN: Soft, nontender to palpation. No rebound or guarding. EXTREMITIES: Negative for clubbing, cyanosis, no edema. DERMATOLOGIC: No rashes. MUSCULOSKELETAL: No joint effusions. NEUROLOGIC: No change in exam. MEDICATIONS: The patient's medications have been reviewed. LABORATORY DATA: Currently pending. No new labs. ASSESSMENT AND PLAN: 1. Acute cerebrovascular accident. The patient is clinically improving. Continue current treatmen t plan. Continue medical management. 2. Hypertension. Continue current blood pressure regimen. 3. Diabetes. Continue Accu-Cheks and sliding scale. 4. Back pain, improved. 5. Dyslipidemia. Continue statin therapy. 6. Vertigo improved. Continue meclizine. 7. Gastrointestinal and deep venous thrombosis prophylaxis. Dictated By: BENIGNO JANSEN/VÍCTOR Conf#: [id number] DID#: [id number]
--- NOTE | 2017-07-04 10:32 | CONS ---
Date/Time of Note Date/Time of Note DATE: 07/04/17 TIME: 10:31 Consult Date/Type/Reason Admit Date/Time Jun 21, 2017 at 13:45 Type of Consultation: nephro/im Subjective Doing well, no complaints Objective pulm-cta min assist ambulation Vital Signs Date Time Temp Pulse Resp B/P Pulse Ox O2 Delivery O2 Flow Rate FiO2 07/04/17 07:00 98.0 79 18 127/75 96 07/02/17 08:00 Room Air Intake and Output 07/03/17 07/03/17 07/04/17 15:00 23:00 07:00 Intake Total 680 ml 680 ml Output Total 300 ml Balance 680 ml 380 ml Results/Medications Results 24 hrs Laboratory Tests Test 07/03/17 12:13 07/03/17 17:34 07/03/17 21:01 07/04/17 07:43 Bedside Glucose 167 115 134 100 Medications Current Medications Docusate Sodium (Colace) 100 mg BID PO Last administered on 07/04/17 08:41; Admin Dose 100 MG; Start 06/21/17 at 21:00 Senna (Senokot) 1 tab HS PO Last administered on 07/03/17 21:02; Admin Dose 1 TAB; Start 06/21/17 at 21:00 Acetaminophen (Tylenol Tab) 650 mg Q4H PRN PO PAIN Last administered on 21:06; Admin Dose 650 MG; Start 06/21/17 at 16:00 Bisacodyl (Dulcolax Supp) 10 mg DAILY PRN [place] CONSTIPATION; Start 06/21/17 at 16:00 Magnesium Hydroxide (Milk Of Mag) 30 ml BID PRN PO CONSTIPATION; Start at 16:00 Lactulose (Enulose) 20 gm DAILY PRN PO CONSTIPATION; Start 06/21/17 at 16:30 Enoxaparin Sodium (Lovenox) 40 mg DAILY SC Last administered on 07/04/17 08: 45; Admin Dose 40 MG; Start 06/22/17 at 09:00 Aspirin (Aspirin) 81 mg DAILY PO Last administered on 07/04/17 08:41; Admin Dose 81 MG; Start 06/22/17 at 09:00 Meclizine HCl (Antivert) 25 mg TID PRN PO VERTIGO Last administered on 09:53; Admin Dose 25 MG; Start 06/21/17 at 16:30 Atorvastatin Calcium (Lipitor) 40 mg DAILY@21 PO Last administered on 21:02; Admin Dose 40 MG; Start 06/21/17 at 21:00 Polyethylene Glycol (Miralax) 17 gm DAILY PRN PO CONSTIPATION; Start 06/21/17 at 16:30 Insulin Glargine (Lantus) 12 unit HS SC Last administered on 07/03/17 21:03; Admin Dose 12 UNIT; Start 06/21/17 at 21:00 Diagnostic Test (Pha) (Accu-Chek) 1 ea 02 XX Last administered on 07/02/17 02 :08; Admin Dose 1 EA; Start 06/21/17 at 16:30 Miscellaneous Information 1 ea NOTE XX ; Start 06/21/17 at 16:30 Glucose (Glutose) 15 gm Q15M PRN PO DECREASED GLUCOSE; Start 06/21/17 at 16:30 Glucose (Glutose) 22.5 gm Q15M PRN PO DECREASED GLUCOSE; Start 06/21/17 at 16: 30 Dextrose (D50w Syringe) 25 ml Q15M PRN IV DECREASED GLUCOSE; Start 06/21/17 at 16:30 Dextrose (D50w Syringe) 50 ml Q15M PRN IV DECREASED GLUCOSE; Start 06/21/17 at 16:30 Glucagon (Glucagen) 1 mg Q15M PRN IM DECREASED GLUCOSE; Start 06/21/17 at 16: 30 Glucose (Glutose) 15 gm Q15M PRN BUCCAL DECREASED GLUCOSE; Start 06/21/17 at 16:30 Tramadol HCl (Ultram) 50 mg Q6H PRN PO PAIN AND/OR INFLAMMATION Last administered on 06/29/17 20:38; Admin Dose 50 MG; Start 06/26/17 at 09:00 Lisinopril (Zestril) 2.5 mg DAILY PO Last administered on 07/04/17 08:41; Admin Dose 2.5 MG; Start 06/28/17 at 09:00 Assessment/Plan Additional Assessment/Plan Rehab- 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 Continue rehab treatment plan, with goal of dc home 07/10. Right vertebral stenosis. Hypertension. Diabetes mellitus. Hyperlipidemia. Chronic low back pain. TALIB SCOTT MD Jul 04, 2017 10:32
[2017-07-04 20:00] VITALS: BP 109/60; RESP 18
[2017-07-04] MEDS: SENNA TAB PO SCH (22:00)
[2017-07-04] MEDS: ATORVASTATIN 40 MG TAB PO SCH (22:03)
[2017-07-04] MEDS: INSULIN GLARGINE [LANtus] 3 ML PEN SC SCH (22:07)
[2017-07-05 02:00] VITALS: BP 157/83; RESP 18
[2017-07-05] MEDS: ACCUCHECK 2 AM XX SCH (02:00)
[2017-07-05 07:01] LABS: BASOPHILS % 0.3 % (0.0-2.0); EOSINOPHILS # 0.1 10^3/ul (0.0-0.5); EOSINOPHILS % 1.7 % (0.0-7.0); HEMATOCRIT 42.9 % (42.0-52.0); HEMOGLOBIN 14.9 g/dl (14.0-18.0); LYMPHOCYTES # 2.1 10^3/ul (0.8-2.9); LYMPHOCYTES % 31.6 % (15.0-51.0); MEAN CORPUSCULAR HEMOGLOBIN 30.7 pg (29.0-33.0); MEAN CORPUSCULAR HGB CONC 34.7 g/dl (32.0-37.0); MEAN CORPUSCULAR VOLUME 88.5 fl (82.0-101.0); MEAN PLATELET VOLUME 10.9 fl (7.4-10.4); MONOCYTE # 0.5 10^3/ul (0.3-0.9); MONOCYTES % 7.2 % (0.0-11.0); NEUTROPHIL # 3.9 10^3/ul (1.6-7.5); NEUTROPHILS % 58.7 % (39.0-77.0); PLATELET COUNT 197 10^3/UL (140-415); RED BLOOD COUNT 4.85 10^6/ul (4.70-6.10); WHITE BLOOD COUNT 6.6 10^3/ul (4.8-10.8)
[2017-07-05] MEDS: Insulin NOVOLOG SS MILD Algorithm (SS with meals and bedtime) SC SCH ×4 (07:05→21:00)
[2017-07-05 07:23] LABS: CALCIUM 9.2 mg/dl (8.4-10.2); CREATININE 0.99 mg/dl (0.61-1.24); MAGNESIUM 1.7 mg/dl (1.7-2.5); PHOSPHORUS 5.1 mg/dl (2.5-4.9); POTASSIUM 4.2 mmol/L (3.5-5.1)
[2017-07-05] MEDS: ASPIRIN 81 MG TAB PO SCH (09:31)
[2017-07-05] MEDS: DOCUSATE SODIUM 100 MG CAP PO SCH ×2 (09:31→21:40)
[2017-07-05] MEDS: ENOXAPARIN 40 MG/0.4 ML SYG SC SCH (09:33)
[2017-07-05] MEDS: LISINOPRIL 5 MG TAB PO SCH (09:34)
--- NOTE | 2017-07-05 10:34 | PN ---
DATE: 07/05/2017 SUBJECTIVE: The patient is stable. No events overnight. No fevers, chills, nausea or vomiting. OBJECTIVE: VITAL SIGNS: Blood pressure is 157/83, respiration 18, pulse 68, temperature 98.2. HEENT: Head is normocephalic. NECK: Supple. HEART: Regular rate. LUNGS: Show diminished breath sounds at the base. ABDOMEN: Soft, nontender to palpation without rebound or guarding. EXTREMITIES: Negative for clubbing, cyanosis, or edema. DERMATOLOGIC: No rashes. MUSCULOSKELETAL: No joint effusions. NEUROLOGIC: No change in exam. MEDICATIONS: Have been reviewed. LABORATORY DATA: Has been reviewed. ASSESSMENT AND PLAN: 1. Acute cerebrovascular accident. The patient is clinically improving. Continue current treatmen t plan. 2. Hypertension. Continue current blood pressure regimen. 3. Diabetes. Continue Accu-Cheks, insulin sliding scale. 4. Back pain, improved. 5. Dyslipidemia. Continue statin therapy. 6. Vertigo, improved. 7. Gastrointestinal and deep venous thrombosis prophylaxis. 8. Asymptomatic pyuria. Continue to monitor. Dictated By: BENIGNO JANSEN/VÍCTOR Conf#: [id number] DID#: [id number]
--- NOTE | 2017-07-05 13:21 | CONS ---
Date/Time of Note Date/Time of Note DATE: 07/05/17 TIME: 13:21 Consult Date/Type/Reason Admit Date/Time Jun 21, 2017 at 13:45 Type of Consultation: nephro/im Subjective No new complaints Objective pulm-cta min assist Vital Signs Date Time Temp Pulse Resp B/P Pulse Ox O2 Delivery O2 Flow Rate FiO2 07/05/17 02:00 98.2 68 18 157/83 98 07/02/17 08:00 Room Air Intake and Output 07/04/17 07/04/17 07/05/17 15:00 23:00 07:00 Intake Total 1800 ml 300 ml Output Total 1000 ml 400 ml Balance 800 ml -100 ml Results/Medications Result Diagram: 07/05/17 0626 07/05/17 0626 Results 24 hrs Laboratory Tests Test 07/04/17 17:17 07/04/17 22:05 07/05/17 06:26 07/05/17 07:55 Bedside Glucose 116 166 99 White Blood Count 6.6 # Red Blood Count 4.85 Hemoglobin 14.9 Hematocrit 42.9 Mean Corpuscular Volume 88.5 Mean Corpuscular Hemoglobin 30.7 Mean Corpuscular Hemoglobin Concent 34.7 Red Cell Distribution Width 11.0 L Platelet Count 197 Mean Platelet Volume 10.9 H Neutrophils % 58.7 Lymphocytes % 31.6 Monocytes % 7.2 Eosinophils % 1.7 Basophils % 0.3 Nucleated Red Blood Cells % 0.0 Neutrophils # 3.9 Lymphocytes # 2.1 Monocytes # 0.5 Eosinophils # 0.1 Basophils # 0.0 Nucleated Red Blood Cells # 0.0 Sodium Level 142 Potassium Level 4.2 Chloride Level 103 Carbon Dioxide Level 29 Anion Gap 14 Blood Urea Nitrogen 18 Creatinine 0.99 Glucose Level 101 Calcium Level 9.2 Phosphorus Level 5.1 H Magnesium Level 1.7 Test 07/05/17 12:25 Bedside Glucose 116 Medications Current Medications Docusate Sodium (Colace) 100 mg BID PO Last administered on 07/05/17 09:31; Admin Dose 100 MG; Start 06/21/17 at 21:00 Senna (Senokot) 1 tab HS PO Last administered on 07/03/17 21:02; Admin Dose 1 TAB; Start 06/21/17 at 21:00 Acetaminophen (Tylenol Tab) 650 mg Q4H PRN PO PAIN Last administered on 21:06; Admin Dose 650 MG; Start 06/21/17 at 16:00 Bisacodyl (Dulcolax Supp) 10 mg DAILY PRN [place] CONSTIPATION; Start 06/21/17 at 16:00 Magnesium Hydroxide (Milk Of Mag) 30 ml BID PRN [place] CONSTIPATION; Start at 16:00 Lactulose (Enulose) 20 gm DAILY PRN [place] CONSTIPATION; Start 06/21/17 at 16:30 Enoxaparin Sodium (Lovenox) 40 mg DAILY SC Last administered on 07/05/17 09: 33; Admin Dose 40 MG; Start 06/22/17 at 09:00 Aspirin (Aspirin) 81 mg DAILY PO Last administered on 07/05/17 09:31; Admin Dose 81 MG; Start 06/22/17 at 09:00 Meclizine HCl (Antivert) 25 mg TID PRN PO VERTIGO Last administered on 09:53; Admin Dose 25 MG; Start 06/21/17 at 16:30 Atorvastatin Calcium (Lipitor) 40 mg DAILY@21 PO Last administered on 22:03; Admin Dose 40 MG; Start 06/21/17 at 21:00 Polyethylene Glycol (Miralax) 17 gm DAILY PRN [place] CONSTIPATION; Start 06/21/17 at 16:30 Insulin Glargine (Lantus) 12 unit HS SC Last administered on 07/04/17 22:07; Admin Dose 12 UNIT; Start 06/21/17 at 21:00 Diagnostic Test (Pha) (Accu-Chek) 1 ea 02 XX Last administered on 07/02/17 02 :08; Admin Dose 1 EA; Start 06/21/17 at 16:30 Miscellaneous Information 1 ea NOTE XX ; Start 06/21/17 at 16:30 Glucose (Glutose) 15 gm Q15M PRN PO DECREASED GLUCOSE; Start 06/21/17 at 16:30 Glucose (Glutose) 22.5 gm Q15M PRN PO DECREASED GLUCOSE; Start 06/21/17 at 16: 30 Dextrose (D50w Syringe) 25 ml Q15M PRN IV DECREASED GLUCOSE; Start 06/21/17 at 16:30 Dextrose (D50w Syringe) 50 ml Q15M PRN IV DECREASED GLUCOSE; Start 06/21/17 at 16:30 Glucagon (Glucagen) 1 mg Q15M PRN IM DECREASED GLUCOSE; Start 06/21/17 at 16: 30 Glucose (Glutose) 15 gm Q15M PRN BUCCAL DECREASED GLUCOSE; Start 06/21/17 at 16:30 Tramadol HCl (Ultram) 50 mg Q6H PRN PO PAIN AND/OR INFLAMMATION Last administered on 06/29/17 20:38; Admin Dose 50 MG; Start 06/26/17 at 09:00 Lisinopril (Zestril) 2.5 mg DAILY PO Last administered on 07/05/17 09:34; Admin Dose 2.5 MG; Start 06/28/17 at 09:00 Assessment/Plan Additional Assessment/Plan Rehab- 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 Continue rehab program Right vertebral stenosis. Hypertension. Diabetes mellitus. Hyperlipidemia. Chronic low back pain. TALIB SCOTT MD Jul 05, 2017 13:21
[2017-07-05 20:00] VITALS: BP 106/70; RESP 18
[2017-07-05] MEDS: SENNA TAB PO SCH (21:40)
[2017-07-05] MEDS: ATORVASTATIN 40 MG TAB PO SCH (21:40)
[2017-07-05] MEDS: INSULIN GLARGINE [LANtus] 3 ML PEN SC SCH (21:44)
[2017-07-06 02:00] VITALS: BP_SYST 124; BP_SYST 125; BP_DIAS 75; PULSE 76; RESP 18
[2017-07-06] MEDS: ACCUCHECK 2 AM XX SCH (02:15)
[2017-07-06 07:30] VITALS: BP 137/78; RESP 18
[2017-07-06] MEDS: Insulin NOVOLOG SS MILD Algorithm (SS with meals and bedtime) SC SCH ×4 (08:25→21:00)
[2017-07-06] MEDS: ASPIRIN 81 MG TAB PO SCH (09:03)
[2017-07-06] MEDS: DOCUSATE SODIUM 100 MG CAP PO SCH ×2 (09:05→21:10)
[2017-07-06] MEDS: LISINOPRIL 5 MG TAB PO SCH (09:05)
[2017-07-06] MEDS: ENOXAPARIN 40 MG/0.4 ML SYG SC SCH (09:06)
--- NOTE | 2017-07-06 09:18 | PN ---
DATE: 07/06/2017 SUBJECTIVE: The patient is stable. No events overnight. No fevers, chills, nausea, vomiting. OBJECTIVE: VITAL SIGNS: Blood pressure is 125/75, temperature 98.7, pulse 77, respiration 18. HEENT: Head is normocephalic. NECK: Supple. HEART: Regular rate. LUNGS: Show diminished breath sounds at base. ABDOMEN: Soft, nontender to palpation without rebound or guarding. EXTREMITIES: Negative for clubbing, cyanosis, edema. DERMATOLOGIC: No rashes. MUSCULOSKELETAL: No joint effusions. NEUROLOGIC: No change in exam. MEDICATIONS: Have been reviewed. LABORATORY DATA: Has been reviewed. No new labs. ASSESSMENT AND PLAN: 1. Acute cerebrovascular accident, patient clinically improving. Continue current treatment plan. 2. Hypertension. Continue current blood pressure regimen. 3. Diabetes, continue Accu-Cheks and sliding scale. 4. Dyslipidemia. Continue statin therapy. 5. Back pain, improved. 6. Gastrointestinal and deep venous thrombosis prophylaxis. 7. Gastroesophageal reflux disease, asymptomatic . Continue to monitor. Dictated By: BENIGNO JANSEN/VÍCTOR Conf#: [id number] DID#: [id number]
--- NOTE | 2017-07-06 10:14 | CONS ---
Date/Time of Note Date/Time of Note DATE: 07/06/17 TIME: 10:14 Consult Date/Type/Reason Admit Date/Time Jun 21, 2017 at 13:45 Type of Consultation: nephro/im Subjective patient doing well Objective pulm-cta min assist ambulation Vital Signs Date Time Temp Pulse Resp B/P Pulse Ox O2 Delivery O2 Flow Rate FiO2 07/06/17 02:00 98.3 76 18 125/75 98 Room Air Intake and Output 07/05/17 07/05/17 07/06/17 15:00 23:00 07:00 Intake Total 1200 ml 350 ml Output Total 800 ml 900 ml Balance 400 ml -550 ml Results/Medications Result Diagram: 07/05/1762507/05/17625 Results 24 hrs Laboratory Tests Test 07/05/17 12:25 07/05/17 17:35 07/05/17 21:42 07/06/17 08:24 Bedside Glucose 116 160 139 110 Medications Current Medications Docusate Sodium (Colace) 100 mg BID PO Last administered on 07/06/17 09:05; Admin Dose 100 MG; Start 06/21/17 at 21:00 Senna (Senokot) 1 tab HS PO Last administered on 07/05/17 21:40; Admin Dose 1 TAB; Start 06/21/17 at 21:00 Acetaminophen (Tylenol Tab) 650 mg Q4H PRN PO PAIN Last administered on 21:06; Admin Dose 650 MG; Start 06/21/17 at 16:00 Bisacodyl (Dulcolax Supp) 10 mg DAILY PRN [place] CONSTIPATION; Start 06/21/17 at 16:00 Magnesium Hydroxide (Milk Of Mag) 30 ml BID PRN PO CONSTIPATION; Start at 16:00 Lactulose (Enulose) 20 gm DAILY PRN PO CONSTIPATION; Start 06/21/17 at 16:30 Enoxaparin Sodium (Lovenox) 40 mg DAILY SC Last administered on 07/06/17 09: 06; Admin Dose 40 MG; Start 06/22/17 at 09:00 Aspirin (Aspirin) 81 mg DAILY PO Last administered on 07/06/17 09:03; Admin Dose 81 MG; Start 06/22/17 at 09:00 Meclizine HCl (Antivert) 25 mg TID PRN PO VERTIGO Last administered on 09:53; Admin Dose 25 MG; Start 06/21/17 at 16:30 Atorvastatin Calcium (Lipitor) 40 mg DAILY@21 PO Last administered on 21:40; Admin Dose 40 MG; Start 06/21/17 at 21:00 Polyethylene Glycol (Miralax) 17 gm DAILY PRN PO CONSTIPATION; Start 06/21/17 at 16:30 Insulin Glargine (Lantus) 12 unit HS SC Last administered on 07/05/17 21:44; Admin Dose 12 UNIT; Start 06/21/17 at 21:00 Diagnostic Test (Pha) (Accu-Chek) 1 ea 02 XX Last administered on 07/02/17 02 :08; Admin Dose 1 EA; Start 06/21/17 at 16:30 Miscellaneous Information 1 ea NOTE XX ; Start 06/21/17 at 16:30 Glucose (Glutose) 15 gm Q15M PRN PO DECREASED GLUCOSE; Start 06/21/17 at 16:30 Glucose (Glutose) 22.5 gm Q15M PRN PO DECREASED GLUCOSE; Start 06/21/17 at 16: 30 Dextrose (D50w Syringe) 25 ml Q15M PRN IV DECREASED GLUCOSE; Start 06/21/17 at 16:30 Dextrose (D50w Syringe) 50 ml Q15M PRN IV DECREASED GLUCOSE; Start 06/21/17 at 16:30 Glucagon (Glucagen) 1 mg Q15M PRN IM DECREASED GLUCOSE; Start 06/21/17 at 16: 30 Glucose (Glutose) 15 gm Q15M PRN BUCCAL DECREASED GLUCOSE; Start 06/21/17 at 16:30 Tramadol HCl (Ultram) 50 mg Q6H PRN PO PAIN AND/OR INFLAMMATION Last administered on 06/29/17 20:38; Admin Dose 50 MG; Start 06/26/17 at 09:00 Lisinopril (Zestril) 2.5 mg DAILY PO Last administered on 07/06/17 09:05; Admin Dose 2.5 MG; Start 06/28/17 at 09:00 Assessment/Plan Additional Assessment/Plan Rehab- 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 Continue rehab plan Right vertebral stenosis. Hypertension. Diabetes mellitus. Hyperlipidemia. Chronic low back pain. TALIB SCOTT MD Jul 06, 2017 10:14
[2017-07-06] MEDS ORDERED: HYDROmorphONE 0.5 MG/0.5 ML SYG IV PRN (12:00)
[2017-07-06 14:00] VITALS: BP 100/69; RESP 18
[2017-07-06 19:37] VITALS: BP 123/75; RESP 19
[2017-07-06] MEDS: SENNA TAB PO SCH (21:00)
[2017-07-06] MEDS: ATORVASTATIN 40 MG TAB PO SCH (21:10)
[2017-07-06] MEDS: INSULIN GLARGINE [LANtus] 3 ML PEN SC SCH (21:13)
[2017-07-07 02:00] VITALS: BP 132/84; PULSE 62; RESP 18
[2017-07-07] MEDS: ACCUCHECK 2 AM XX SCH (02:15)
[2017-07-07 07:37] VITALS: BP 123/84; PULSE 68; RESP 20
[2017-07-07] MEDS: Insulin NOVOLOG SS MILD Algorithm (SS with meals and bedtime) SC SCH ×4 (09:00→20:33)
[2017-07-07] MEDS: LISINOPRIL 5 MG TAB PO SCH (09:26)
[2017-07-07] MEDS: ENOXAPARIN 40 MG/0.4 ML SYG SC SCH (09:26)
[2017-07-07] MEDS: ASPIRIN 81 MG TAB PO SCH (09:26)
[2017-07-07] MEDS: DOCUSATE SODIUM 100 MG CAP PO SCH ×2 (09:26→20:35)
--- NOTE | 2017-07-07 10:48 | PN ---
DATE: 07/07/2017 SUBJECTIVE: The patient is stable. No events overnight. No fevers, chills, nausea, vomiting. OBJECTIVE: VITAL SIGNS: Blood pressure is 123/84, temperature 97.5, pulse 68, respirations 20. HEENT: Head is normocephalic. NECK: Supple. HEART: Regular rate. LUNGS: Show diminished breath sounds at the base. ABDOMEN: Soft, nontender to palpation. No rebound or guarding. EXTREMITIES: Negative for clubbing, cyanosis, edema. DERMATOLOGIC: No rashes. MUSCULOSKELETAL: No joint effusions. NEUROLOGIC: No change in exam. MEDICATIONS: The patient's medications have been reviewed. LABORATORY DATA: Has been reviewed. ASSESSMENT AND PLAN: 1. Acute cerebrovascular accident. The patient is clinically improving. Continue current treatmen t plan. 2. Hypertension. Continue current blood pressure regimen. 3. Diabetes. Continue Accu-Cheks, insulin sliding scale. 4. Dyslipidemia. Continue statin therapy. 5. Back pain, improved. 6. Gastrointestinal and deep venous thrombosis prophylaxis. Dictated By: BENIGNO JANSEN/VÍCTOR Conf#: [id number] DID#: [id number]
--- NOTE | 2017-07-07 11:07 | CONS ---
Date/Time of Note Date/Time of Note DATE: 07/07/17 TIME: 11:06 Consult Date/Type/Reason Admit Date/Time Jun 21, 2017 at 13:45 Type of Consultation: nephro/im Subjective Patient comfortable in good spirits Objective Lungs clear abdomen soft Min assist ambulation Vital Signs Date Time Temp Pulse Resp B/P Pulse Ox O2 Delivery O2 Flow Rate FiO2 07/07/17 07:37 97.5 68 20 123/84 98 Room Air Intake and Output 07/06/17 07/06/17 07/07/17 15:00 23:00 07:00 Intake Total 350 ml Output Total 1100 ml Balance -750 ml Results/Medications Result Diagram: 07/05/1762507/05/17625 Results 24 hrs Laboratory Tests Test 07/06/17 12:15 07/06/17 17:32 07/06/17 21:11 07/07/17 09:00 Bedside Glucose 135 100 123 105 Medications Current Medications Docusate Sodium (Colace) 100 mg BID PO Last administered on 07/07/17 09:26; Admin Dose 100 MG; Start 06/21/17 at 21:00 Senna (Senokot) 1 tab HS PO Last administered on 07/05/17 21:40; Admin Dose 1 TAB; Start 06/21/17 at 21:00 Acetaminophen (Tylenol Tab) 650 mg Q4H PRN PO PAIN Last administered on 21:06; Admin Dose 650 MG; Start 06/21/17 at 16:00 Bisacodyl (Dulcolax Supp) 10 mg DAILY PRN [place] CONSTIPATION; Start 06/21/17 at 16:00 Magnesium Hydroxide (Milk Of Mag) 30 ml BID PRN PO CONSTIPATION Last administered on 07/06/17 12:18; Admin Dose 30 ML; Start 06/21/17 at 16:00 Lactulose (Enulose) 20 gm DAILY PRN PO CONSTIPATION; Start 06/21/17 at 16:30 Enoxaparin Sodium (Lovenox) 40 mg DAILY SC Last administered on 07/07/17 09: 26; Admin Dose 40 MG; Start 06/22/17 at 09:00 Aspirin (Aspirin) 81 mg DAILY PO Last administered on 07/07/17 09:26; Admin Dose 81 MG; Start 06/22/17 at 09:00 Meclizine HCl (Antivert) 25 mg TID PRN PO VERTIGO Last administered on 09:53; Admin Dose 25 MG; Start 06/21/17 at 16:30 Atorvastatin Calcium (Lipitor) 40 mg DAILY@21 PO Last administered on 21:10; Admin Dose 40 MG; Start 06/21/17 at 21:00 Polyethylene Glycol (Miralax) 17 gm DAILY PRN PO CONSTIPATION; Start 06/21/17 at 16:30 Insulin Glargine (Lantus) 12 unit HS SC Last administered on 07/06/17 21:13; Admin Dose 12 UNIT; Start 06/21/17 at 21:00 Diagnostic Test (Pha) (Accu-Chek) 1 ea 02 XX Last administered on 07/02/17 02 :08; Admin Dose 1 EA; Start 06/21/17 at 16:30 Miscellaneous Information 1 ea NOTE XX ; Start 06/21/17 at 16:30 Glucose (Glutose) 15 gm Q15M PRN PO DECREASED GLUCOSE; Start 06/21/17 at 16:30 Glucose (Glutose) 22.5 gm Q15M PRN PO DECREASED GLUCOSE; Start 06/21/17 at 16: 30 Dextrose (D50w Syringe) 25 ml Q15M PRN IV DECREASED GLUCOSE; Start 06/21/17 at 16:30 Dextrose (D50w Syringe) 50 ml Q15M PRN IV DECREASED GLUCOSE; Start 06/21/17 at 16:30 Glucagon (Glucagen) 1 mg Q15M PRN IM DECREASED GLUCOSE; Start 06/21/17 at 16: 30 Glucose (Glutose) 15 gm Q15M PRN BUCCAL DECREASED GLUCOSE; Start 06/21/17 at 16:30 Tramadol HCl (Ultram) 50 mg Q6H PRN PO PAIN AND/OR INFLAMMATION Last administered on 06/29/17 20:38; Admin Dose 50 MG; Start 06/26/17 at 09:00 Lisinopril (Zestril) 2.5 mg DAILY PO Last administered on 07/07/17 09:26; Admin Dose 2.5 MG; Start 06/28/17 at 09:00 Assessment/Plan Additional Assessment/Plan Rehab- 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 Continue rehab activities. Patient making excellent gains Right vertebral stenosis. Hypertension. Diabetes mellitus. Hyperlipidemia. Chronic low back pain. TALIB SCOTT MD Jul 07, 2017 11:07
[2017-07-07 20:21] VITALS: BP 143/78; PULSE 64; RESP 19
[2017-07-07] MEDS: ATORVASTATIN 40 MG TAB PO SCH (20:27)
[2017-07-07] MEDS: INSULIN GLARGINE [LANtus] 3 ML PEN SC SCH (20:34)
[2017-07-07] MEDS: SENNA TAB PO SCH (20:35)
[2017-07-08] MEDS: ACCUCHECK 2 AM XX SCH (02:00)
[2017-07-08] MEDS: Insulin NOVOLOG SS MILD Algorithm (SS with meals and bedtime) SC SCH ×4 (07:05→20:46)
[2017-07-08 08:00] VITALS: BP 120/76; PULSE 78; RESP 18
--- NOTE | 2017-07-08 08:19 | CONS ---
Date/Time of Note Date/Time of Note DATE: 07/08/17 TIME: 08:18 Consult Date/Type/Reason Admit Date/Time Jun 21, 2017 at 13:45 Initial Consult Date Type of Consultation: nephro/im Subjective The patient is stable. No events overnight. No fevers, chills, nausea, vomiting. OBJECTIVE: VITAL SIGNS: Blood pressure is 123/84, temperature 97.5, pulse 68, respirations 20. HEENT: Head is normocephalic. NECK: Supple. HEART: Regular rate. LUNGS: Show diminished breath sounds at the base. ABDOMEN: Soft, nontender to palpation. No rebound or guarding. EXTREMITIES: Negative for clubbing, cyanosis, edema. DERMATOLOGIC: No rashes. MUSCULOSKELETAL: No joint effusions. NEUROLOGIC: No change in exam. MEDICATIONS: The patient's medications have been reviewed. LABORATORY DATA: Has been reviewed. Objective Vital Signs Date Time Temp Pulse Resp B/P Pulse Ox O2 Delivery O2 Flow Rate FiO2 07/07/17 20:21 98.3 64 19 143/78 96 Room Air Intake and Output 07/07/17 07/07/17 07/08/17 15:00 23:00 07:00 Intake Total 800 ml Output Total 750 ml Balance 50 ml Results/Medications Result Diagram: 07/05/17 0607/05/17 06 Results 24 hrs Laboratory Tests Test 07/07/17 09:00 07/07/17 12:25 07/07/17 17:24 07/07/17 20:25 Bedside Glucose 105 125 129 183 Test 07/08/17 02:10 07/08/17 07:51 Bedside Glucose 124 110 Medications Current Medications Docusate Sodium (Colace) 100 mg BID PO Last administered on 07/07/17 09:26; Admin Dose 100 MG; Start 06/21/17 at 21:00 Senna (Senokot) 1 tab HS PO Last administered on 07/05/17 21:40; Admin Dose 1 TAB; Start 06/21/17 at 21:00 Acetaminophen (Tylenol Tab) 650 mg Q4H PRN PO PAIN Last administered on 21:06; Admin Dose 650 MG; Start 06/21/17 at 16:00 Bisacodyl (Dulcolax Supp) 10 mg DAILY PRN [place] CONSTIPATION; Start 06/21/17 at 16:00 Magnesium Hydroxide (Milk Of Mag) 30 ml BID PRN PO CONSTIPATION Last administered on 07/06/17 12:18; Admin Dose 30 ML; Start 06/21/17 at 16:00 Lactulose (Enulose) 20 gm DAILY PRN PO CONSTIPATION; Start 06/21/17 at 16:30 Enoxaparin Sodium (Lovenox) 40 mg DAILY SC Last administered on 07/07/17 09: 26; Admin Dose 40 MG; Start 06/22/17 at 09:00 Aspirin (Aspirin) 81 mg DAILY PO Last administered on 07/07/17 09:26; Admin Dose 81 MG; Start 06/22/17 at 09:00 Meclizine HCl (Antivert) 25 mg TID PRN PO VERTIGO Last administered on 09:53; Admin Dose 25 MG; Start 06/21/17 at 16:30 Atorvastatin Calcium (Lipitor) 40 mg DAILY@21 PO Last administered on 20:27; Admin Dose 40 MG; Start 06/21/17 at 21:00 Polyethylene Glycol (Miralax) 17 gm DAILY PRN PO CONSTIPATION; Start 06/21/17 at 16:30 Insulin Glargine (Lantus) 12 unit HS SC Last administered on 07/07/17 20:34; Admin Dose 12 UNIT; Start 06/21/17 at 21:00 Diagnostic Test (Pha) (Accu-Chek) 1 ea 02 XX Last administered on 07/08/17 02 :00; Admin Dose 1 EA; Start 06/21/17 at 16:30 Miscellaneous Information 1 ea NOTE XX ; Start 06/21/17 at 16:30 Glucose (Glutose) 15 gm Q15M PRN PO DECREASED GLUCOSE; Start 06/21/17 at 16:30 Glucose (Glutose) 22.5 gm Q15M PRN PO DECREASED GLUCOSE; Start 06/21/17 at 16: 30 Dextrose (D50w Syringe) 25 ml Q15M PRN IV DECREASED GLUCOSE; Start 06/21/17 at 16:30 Dextrose (D50w Syringe) 50 ml Q15M PRN IV DECREASED GLUCOSE; Start 06/21/17 at 16:30 Glucagon (Glucagen) 1 mg Q15M PRN IM DECREASED GLUCOSE; Start 06/21/17 at 16: 30 Glucose (Glutose) 15 gm Q15M PRN BUCCAL DECREASED GLUCOSE; Start 06/21/17 at 16:30 Tramadol HCl (Ultram) 50 mg Q6H PRN PO PAIN AND/OR INFLAMMATION Last administered on 06/29/17 20:38; Admin Dose 50 MG; Start 06/26/17 at 09:00 Lisinopril (Zestril) 2.5 mg DAILY PO Last administered on 07/07/17 09:26; Admin Dose 2.5 MG; Start 06/28/17 at 09:00 Assessment/Plan Chief Complaint/Hosp Course ASSESSMENT AND PLAN: 1. Acute cerebrovascular accident. The patient is clinically improving. Continue current treatment plan. 2. Hypertension. Continue current blood pressure regimen. 3. Diabetes. Continue Accu-Cheks, insulin sliding scale. 4. Dyslipidemia. Continue statin therapy. 5. Back pain, improved. 6. Gastrointestinal and deep venous thrombosis prophylaxis. Problems: MARKY SMILEY MD Jul 08, 2017 08:19
[2017-07-08] MEDS: LISINOPRIL 5 MG TAB PO SCH (08:22)
[2017-07-08] MEDS: DOCUSATE SODIUM 100 MG CAP PO SCH ×2 (08:22→20:46)
[2017-07-08] MEDS: ASPIRIN 81 MG TAB PO SCH (08:22)
[2017-07-08] MEDS: ENOXAPARIN 40 MG/0.4 ML SYG SC SCH (08:24)
--- NOTE | 2017-07-08 08:35 | CONS ---
Date/Time of Note Date/Time of Note DATE: 07/08/17 TIME: 08:35 Consult Date/Type/Reason Admit Date/Time Jun 21, 2017 at 13:45 Type of Consultation: nephro/im Subjective Remains motivated for all activities Objective improving strength on Right cga ambulation pulm-cta Vital Signs Date Time Temp Pulse Resp B/P Pulse Ox O2 Delivery O2 Flow Rate FiO2 07/08/17 08:00 98.3 78 18 120/76 98 Room Air Intake and Output 07/07/17 07/07/17 07/08/17 15:00 23:00 07:00 Intake Total 800 ml Output Total 750 ml Balance 50 ml Results/Medications Result Diagram: 07/05/17 0626 07/05/17 0626 Results 24 hrs Laboratory Tests Test 07/07/17 09:00 07/07/17 12:25 07/07/17 17:24 07/07/17 20:25 Bedside Glucose 105 125 129 183 Test 07/08/17 02:10 07/08/17 07:51 Bedside Glucose 124 110 Medications Current Medications Docusate Sodium (Colace) 100 mg BID PO Last administered on 07/08/17 08:22; Admin Dose 100 MG; Start 06/21/17 at 21:00 Senna (Senokot) 1 tab HS PO Last administered on 07/05/17 21:40; Admin Dose 1 TAB; Start 06/21/17 at 21:00 Acetaminophen (Tylenol Tab) 650 mg Q4H PRN PO PAIN Last administered on 21:06; Admin Dose 650 MG; Start 06/21/17 at 16:00 Bisacodyl (Dulcolax Supp) 10 mg DAILY PRN [place] CONSTIPATION; Start 06/21/17 at 16:00 Magnesium Hydroxide (Milk Of Mag) 30 ml BID PRN PO CONSTIPATION Last administered on 07/06/17 12:18; Admin Dose 30 ML; Start 06/21/17 at 16:00 Lactulose (Enulose) 20 gm DAILY PRN PO CONSTIPATION; Start 06/21/17 at 16:30 Enoxaparin Sodium (Lovenox) 40 mg DAILY SC Last administered on 07/08/17 08: 24; Admin Dose 40 MG; Start 06/22/17 at 09:00 Aspirin (Aspirin) 81 mg DAILY PO Last administered on 07/08/17 08:22; Admin Dose 81 MG; Start 06/22/17 at 09:00 Meclizine HCl (Antivert) 25 mg TID PRN PO VERTIGO Last administered on 09:53; Admin Dose 25 MG; Start 06/21/17 at 16:30 Atorvastatin Calcium (Lipitor) 40 mg DAILY@21 PO Last administered on 20:27; Admin Dose 40 MG; Start 06/21/17 at 21:00 Polyethylene Glycol (Miralax) 17 gm DAILY PRN PO CONSTIPATION; Start 06/21/17 at 16:30 Insulin Glargine (Lantus) 12 unit HS SC Last administered on 07/07/17 20:34; Admin Dose 12 UNIT; Start 06/21/17 at 21:00 Diagnostic Test (Pha) (Accu-Chek) 1 ea 02 XX Last administered on 07/08/17 02 :00; Admin Dose 1 EA; Start 06/21/17 at 16:30 Miscellaneous Information 1 ea NOTE XX ; Start 06/21/17 at 16:30 Glucose (Glutose) 15 gm Q15M PRN PO DECREASED GLUCOSE; Start 06/21/17 at 16:30 Glucose (Glutose) 22.5 gm Q15M PRN PO DECREASED GLUCOSE; Start 06/21/17 at 16: 30 Dextrose (D50w Syringe) 25 ml Q15M PRN IV DECREASED GLUCOSE; Start 06/21/17 at 16:30 Dextrose (D50w Syringe) 50 ml Q15M PRN IV DECREASED GLUCOSE; Start 06/21/17 at 16:30 Glucagon (Glucagen) 1 mg Q15M PRN IM DECREASED GLUCOSE; Start 06/21/17 at 16: 30 Glucose (Glutose) 15 gm Q15M PRN BUCCAL DECREASED GLUCOSE; Start 06/21/17 at 16:30 Tramadol HCl (Ultram) 50 mg Q6H PRN PO PAIN AND/OR INFLAMMATION Last administered on 06/29/17 20:38; Admin Dose 50 MG; Start 06/26/17 at 09:00 Lisinopril (Zestril) 2.5 mg DAILY PO Last administered on 07/08/17 08:22; Admin Dose 2.5 MG; Start 06/28/17 at 09:00 Assessment/Plan Additional Assessment/Plan Rehab- Left pontine infarct CVA with R chirag Excellent progress. Anticipate dc Monday HTN DM cLBP Hyperlipidemia TALIB SCOTT MD Jul 08, 2017 08:35
[2017-07-08 20:35] VITALS: BP 139/79; PULSE 71; RESP 17
[2017-07-08] MEDS: ATORVASTATIN 40 MG TAB PO SCH (20:40)
[2017-07-08] MEDS: INSULIN GLARGINE [LANtus] 3 ML PEN SC SCH (20:44)
[2017-07-08] MEDS: SENNA TAB PO SCH (20:46)
[2017-07-09] MEDS: ACCUCHECK 2 AM XX SCH (02:00)
[2017-07-09] MEDS: Insulin NOVOLOG SS MILD Algorithm (SS with meals and bedtime) SC SCH ×4 (07:05→21:00)
[2017-07-09 08:00] VITALS: BP 100/67; PULSE 73; RESP 18
[2017-07-09] MEDS: DOCUSATE SODIUM 100 MG CAP PO SCH ×2 (08:05→21:49)
[2017-07-09] MEDS: ASPIRIN 81 MG TAB PO SCH (08:05)
[2017-07-09] MEDS: ENOXAPARIN 40 MG/0.4 ML SYG SC SCH (08:05)
[2017-07-09] MEDS: LISINOPRIL 5 MG TAB PO SCH (08:06)
[2017-07-09 19:15] VITALS: BP 110/66; PULSE 74; RESP 18
[2017-07-09] MEDS: ATORVASTATIN 40 MG TAB PO SCH (21:50)
[2017-07-09] MEDS: SENNA TAB PO SCH (21:50)
[2017-07-09] MEDS: INSULIN GLARGINE [LANtus] 3 ML PEN SC SCH (21:54)
--- NOTE | 2017-07-09 23:09 | CONS ---
Date/Time of Note Date/Time of Note DATE: 07/09/17 TIME: 23:09 Consult Date/Type/Reason Admit Date/Time Jun 21, 2017 at 13:45 Type of Consultation: nephro/im Subjective The patient is stable. No events overnight. No fevers, chills, nausea, vomiting. OBJECTIVE: VITAL SIGNS: Blood pressure is 123/84, temperature 97.5, pulse 68, respirations 20. HEENT: Head is normocephalic. NECK: Supple. HEART: Regular rate. LUNGS: Show diminished breath sounds at the base. ABDOMEN: Soft, nontender to palpation. No rebound or guarding. EXTREMITIES: Negative for clubbing, cyanosis, edema. DERMATOLOGIC: No rashes. MUSCULOSKELETAL: No joint effusions. NEUROLOGIC: No change in exam. MEDICATIONS: The patient's medications have been reviewed. LABORATORY DATA: Has been reviewed. Objective Vital Signs Date Time Temp Pulse Resp B/P Pulse Ox O2 Delivery O2 Flow Rate FiO2 07/09/17 19:15 98.4 74 18 110/66 95 Room Air Intake and Output 07/08/17 07/08/17 07/09/17 15:00 23:00 07:00 Intake Total 500 ml 250 ml Output Total 750 ml Balance 500 ml -500 ml Results/Medications Result Diagram: 07/05/1762507/05/17625 Results 24 hrs Laboratory Tests Test 07/09/17 07:51 07/09/17 12:18 07/09/17 17:23 07/09/17 21:52 Bedside Glucose 98 128 121 135 Medications Current Medications Docusate Sodium (Colace) 100 mg BID PO Last administered on 07/09/17 21:49; Admin Dose 100 MG; Start 06/21/17 at 21:00 Senna (Senokot) 1 tab HS PO Last administered on 07/09/17 21:50; Admin Dose 1 TAB; Start 06/21/17 at 21:00 Acetaminophen (Tylenol Tab) 650 mg Q4H PRN PO PAIN Last administered on 21:06; Admin Dose 650 MG; Start 06/21/17 at 16:00 Bisacodyl (Dulcolax Supp) 10 mg DAILY PRN [place] CONSTIPATION; Start 06/21/17 at 16:00 Magnesium Hydroxide (Milk Of Mag) 30 ml BID PRN PO CONSTIPATION Last administered on 07/06/17 12:18; Admin Dose 30 ML; Start 06/21/17 at 16:00 Lactulose (Enulose) 20 gm DAILY PRN PO CONSTIPATION; Start 06/21/17 at 16:30 Enoxaparin Sodium (Lovenox) 40 mg DAILY SC Last administered on 07/09/17 08: 05; Admin Dose 40 MG; Start 06/22/17 at 09:00 Aspirin (Aspirin) 81 mg DAILY PO Last administered on 07/09/17 08:05; Admin Dose 81 MG; Start 06/22/17 at 09:00 Meclizine HCl (Antivert) 25 mg TID PRN PO VERTIGO Last administered on 09:53; Admin Dose 25 MG; Start 06/21/17 at 16:30 Atorvastatin Calcium (Lipitor) 40 mg DAILY@21 PO Last administered on 21:50; Admin Dose 40 MG; Start 06/21/17 at 21:00 Polyethylene Glycol (Miralax) 17 gm DAILY PRN PO CONSTIPATION; Start 06/21/17 at 16:30 Insulin Glargine (Lantus) 12 unit HS SC Last administered on 07/09/17 21:54; Admin Dose 12 UNIT; Start 06/21/17 at 21:00 Diagnostic Test (Pha) (Accu-Chek) 1 ea 02 XX Last administered on 07/08/17 02 :00; Admin Dose 1 EA; Start 06/21/17 at 16:30 Miscellaneous Information 1 ea NOTE XX ; Start 06/21/17 at 16:30 Glucose (Glutose) 15 gm Q15M PRN PO DECREASED GLUCOSE; Start 06/21/17 at 16:30 Glucose (Glutose) 22.5 gm Q15M PRN PO DECREASED GLUCOSE; Start 06/21/17 at 16: 30 Dextrose (D50w Syringe) 25 ml Q15M PRN IV DECREASED GLUCOSE; Start 06/21/17 at 16:30 Dextrose (D50w Syringe) 50 ml Q15M PRN IV DECREASED GLUCOSE; Start 06/21/17 at 16:30 Glucagon (Glucagen) 1 mg Q15M PRN IM DECREASED GLUCOSE; Start 06/21/17 at 16: 30 Glucose (Glutose) 15 gm Q15M PRN BUCCAL DECREASED GLUCOSE; Start 06/21/17 at 16:30 Tramadol HCl (Ultram) 50 mg Q6H PRN PO PAIN AND/OR INFLAMMATION Last administered on 06/29/17 20:38; Admin Dose 50 MG; Start 06/26/17 at 09:00 Lisinopril (Zestril) 2.5 mg DAILY PO Last administered on 07/08/17 08:22; Admin Dose 2.5 MG; Start 06/28/17 at 09:00 Assessment/Plan Chief Complaint/Hosp Course ASSESSMENT AND PLAN: 1. Acute cerebrovascular accident. The patient is clinically improving. Continue current treatment plan. 2. Hypertension. Continue current blood pressure regimen. 3. Diabetes. Continue Accu-Cheks, insulin sliding scale. 4. Dyslipidemia. Continue statin therapy. 5. Back pain, improved. 6. Gastrointestinal and deep venous thrombosis prophylaxis. Problems: MARKY SMILEY MD Jul 09, 2017 23:09
[2017-07-10] MEDS: ACCUCHECK 2 AM XX SCH (02:00)
[2017-07-10 02:15] VITALS: BP 115/68; PULSE 66; RESP 18
[2017-07-10] MEDS: Insulin NOVOLOG SS MILD Algorithm (SS with meals and bedtime) SC SCH (07:05)
[2017-07-10 07:40] VITALS: BP 111/75; PULSE 73; RESP 20
[2017-07-10] MEDS: DOCUSATE SODIUM 100 MG CAP PO SCH (09:00)
[2017-07-10] MEDS: ASPIRIN 81 MG TAB PO SCH (09:00)
[2017-07-10] MEDS: ENOXAPARIN 40 MG/0.4 ML SYG SC SCH (09:00)
[2017-07-10] MEDS: LISINOPRIL 5 MG TAB PO SCH (09:00)
--- NOTE | 2017-07-10 09:23 | DS ---
Date/Time of Note Date/Time of Note DATE: 07/10/17 TIME: 09:20 Discharge Summary Admission/Discharge Info Admit Date/Time Jun 21, 2017 at 13:45 Discharge Date/Time Discharge Diagnosis 1. Left pontine infarct cerebrovascular accident with right-sided weakness; Right vertebral stenosis. 2. Hypertension. 3. Diabetes mellitus. 4. Hyperlipidemia. 5. Chronic low back pain. 6. Improvements in self-care, mobility and cognition. Patient Condition: Good Hospital Course Patient was admitted for comprehensive interdisciplinary acute rehabilitation. Patient made steady functional gains and improved from a mod level to a SBA/CGA level for self care and mobility, including ambulating over 150 feet with the use of a front wheeled walker, and AFO. Patient was noted to have good improvement in motor strength, and also with cognition and dysphagia. Patient is being discharged home with recommendations for home health PT , OT, and speech follow up. DME recommendations: [facility]; [facility]; Shower Chair Patient will follow up with PMD upon DC. Primary Care Provider Care Physician No Primary Pending Labs Laboratory Tests Test 07/09/17 12:18 07/09/17 17:23 07/09/17 21:52 07/10/17 07:37 Bedside Glucose 128mg/dL (70-220) 121mg/dL (70-220) 135mg/dL (70-220) 105mg/dL (70-220) TALIB SCOTT MD Jul 10, 2017 09:23
--- NOTE | 2017-07-10 10:12 | PN ---
DATE: 07/10/2017 SUBJECTIVE: The patient is stable. No events overnight. No fevers, chills, nausea, vomiting. OBJECTIVE: VITAL SIGNS: Blood pressure is 115/68, respirations 18, pulse 66, temperature 97.8. HEENT: Head is normocephalic. NECK: Supple. HEART: Regular rate. LUNGS: Show diminished breath sounds at base. ABDOMEN: Soft, nontender to palpation. No rebound or guarding. EXTREMITIES: Negative for clubbing, cyanosis, no edema. DERMATOLOGIC: No rashes. MUSCULOSKELETAL: No joint effusions. NEUROLOGIC: No change in exam. MEDICATIONS: Have been reviewed. LABORATORY DATA: Has been reviewed. ASSESSMENT AND PLAN: 1. Acute cerebrovascular accident. The patient is clinically improving. Continue current treatmen t plan. 2. Hypertension. Continue current blood pressure regimen. 3. Diabetes. Continue Accu-Cheks, insulin sliding scale. 4. Dyslipidemia. Continue statin therapy. 5. Back pain, improved. 6. Gastrointestinal and deep venous thrombosis prophylaxis. Dictated By: BENIGNO JANSEN/VÍCTOR Conf#: [id number] DID#: [id number]
== END 2017-07-10 11:30 | disposition home health service (06) | DRG 57 ==
LOC: VRC 13:45
PROVIDERS: ADMIT Physical Medicine & Rehabilitation; ATTEND Internal Medicine Nephrology
PROC: F07Z5ZZ Bed Mobility Treatment (ICD-10-PCS; 2017-06-22)
PROC: F07Z8ZZ Transfer Training Treatment (ICD-10-PCS; 2017-06-22)
PROC: F07Z9ZZ Gait Training/Functional Ambulation Treatment (ICD-10-PCS; 2017-06-22)
PROC: F07Z4ZZ Wheelchair Mobility Treatment (ICD-10-PCS; 2017-06-22)
PROC: 3E0234Z Introduction of Serum, Toxoid and Vaccine into Muscle, Percutaneous Approach (ICD-10-PCS; 2017-06-22)
PROC: F08Z1ZZ Dressing Techniques Treatment (ICD-10-PCS; principal; 2017-06-23)
PROC: F08Z0ZZ Bathing/Showering Techniques Treatment (ICD-10-PCS; 2017-06-23)
PROC: F08Z2ZZ Grooming/Personal Hygiene Treatment (ICD-10-PCS; 2017-06-23)
PROC: F06ZDZZ Swallowing Dysfunction Treatment (ICD-10-PCS; 2017-06-28)
DX: I69.351 Hemiplegia and hemiparesis following cerebral infarction affecting right dominant side (principal); H49.02 Third [oculomotor] nerve palsy, left eye; I10 Essential (primary) hypertension; N39.0 Urinary tract infection, site not specified; E11.9 Type 2 diabetes mellitus without complications; B95.2 Enterococcus as the cause of diseases classified elsewhere; H51.22 Internuclear ophthalmoplegia, left eye; H53.2 Diplopia; I69.322 Dysarthria following cerebral infarction; I65.01 Occlusion and stenosis of right vertebral artery; E78.5 Hyperlipidemia, unspecified; G89.29 Other chronic pain; M54.5 Low back pain; R42 Dizziness and giddiness; Z74.09 Other reduced mobility; Z23 Encounter for immunization
CPT/HCPCS: 74230; 80048; 80053; 81001; 82962; 83036; 83735; 84100; 85025; 87081; 87086; 90686; 92507; 92523; 92526; 92610; 92611; 97110; 97112; 97116; 97150; 97163; 97167; 97530; 97535; 97542; J1650; J1815; L1820; L1932; L2820; L3675